=== PATIENT | female | born 1970 | race Hispanic/Latino ===

== ENCOUNTER → 2017-10-02 | Outpatient (CLI) | payer BC ==
[~2017-10-02] MED LIST: AMOXICILLIN500 M1 PO; BIRTH CONTROL PO; CHERATUSSIN AC118 ML PO; CIPRO500 MG PO; DEXILANT60 MG PO; DEXLANSOPRAZOLE; DOXYCYCLINE MO100 MG PO; FOLIC ACID1 MG PO; IPRAT-ALBUT 0.5-3 ML; KEFLEX500 MG PO; LEVAQUIN500 MG PO; MEDROL4 MG/DOSE-; METHOTREXATE2.5 MG PO; PLAQUENIL200 MG PO; PREDNISONE TAPER; PROVENTIL HFA6.7 GM; SERTALINE PO; SUCRALFATE1 GM PO; TYLENOL WITH C1 EACH PO; UTA PO; [UNRECOGNIZED DRUG - OTHER] PO
--- NOTE | 2017-10-03 12:21 | Diagnostic Imaging Report ---
Examination: MRI SPINE CERVICAL WO History: Right arm and hand numbness Comparison studies: None Technique: Sagittal T1, T2 and IR, axial T2 and axial gradient echo intravenous contrast: None Findings: Alignment: Normal lordosis. No scoliosis. Cervicomedullary junction: No abnormalities. Patent foramen magnum. Soft tissues: No T2 hyperintense inflammatory changes. Spinal cord: Normal in size and signal from the foramen magnum through T1. Vertebrae: No fractures, infection or neoplasm. Degenerative changes: C1-C2: No abnormalities. C2-C3: No abnormalities. C3-C4: Mild spinal canal stenosis due to a disc osteophyte complex. A thin foramina. No disc herniation. C4-C5: No abnormalities. C5-C6: Mild spinal canal stenosis due to a disc osteophyte complex. Mild right foraminal stenosis due to uncoarthrosis. Patent left foramen. No disc herniation C6-C7: Moderate right foraminal stenosis due to uncovertebral arthrosis. Patent bilateral canal in spite of a disc osteophyte complex. No disc herniations C7-T1: No abnormalities. IMPRESSION: 1. Mild spinal canal stenosis at C3-4 and at C5-6 due to disc osteophyte complexes. 2. Mild foraminal stenosis on the right at C5-6, moderate right at C6-7 due to uncoarthrosis. 3. No additional significant abnormalities. Signed by: Dr. Kris Mar M.D. on 10/03/2017 6:09 PM
== END ==
LOC: MRI 15:40
PROVIDERS: ATTEND Orthopaedic Surgery
DX: M53.82 Other specified dorsopathies, cervical region (principal)
CPT/HCPCS: 72141

== ENCOUNTER 2017-11-07 06:36 | Observation (INO) | payer BC ==
[2017-11-05 17:54] LABS: BASOPHILS # (AUTO) 0.1 (0.0-0.1); BASOPHILS % 1.4 % (0.0-1.0); EOSINOPHILS # (AUTO) 0.2 (0.0-0.4); EOSINOPHILS % 3.2 % (0.0-6.0); HEMATOCRIT 37.2 % (34.2-44.1); HEMOGLOBIN 12.3 g/dL (12.0-16.0); LYMPHOCYTES # (AUTO) 2.4 (1.0-3.2); LYMPHOCYTES % 36.2 % (18.0-39.1); MEAN CORPUSCULAR HEMOGLOBIN 29.4 pg (28-32); MEAN CORPUSCULAR HGB CONC 33.1 g/dL (31-35); MONOCYTES # (AUTO) 0.6 (0.2-0.8); MONOCYTES % 8.3 % (4.4-11.3); NEUTROPHILS # (AUTO) 3.4 (2.1-6.9); NEUTROPHILS % 50.7 % (38.7-80.0); PLATELET COUNT 293 x10e3/uL (140-360); RED BLOOD COUNT 4.18 x10e6/uL (3.6-5.1)
--- NOTE | 2017-11-05 17:58 | Diagnostic Imaging Report ---
PROCEDURE: Frontal and lateral views of the chest. COMPARISON: None. INDICATIONS: PRE-OP FINDINGS: Lines/tubes: None. Lungs: The lungs are well inflated and clear. There is no evidence of pneumonia or pulmonary edema. Pleura: There is no pleural effusion or pneumothorax. Heart and mediastinum: Mild enlargement of the cardiac silhouette. Pulmonary vasculature is normal. Bones and soft tissues: No acute bony abnormality. Cholecystectomy clips. IMPRESSION: 1. mild enlargement of the cardiac silhouette, without acute cardiopulmonary abnormality. Tom Pizano M.D. Dictated by: Tom Pizano M.D. on 11/05/2017 at 18:03 Electronically approved by: Tom Pizano M.D. on 11/05/2017 at 18:03
[2017-11-05 18:02] LABS: INR 1.05; PROTHROMBIN TIME 12.9 seconds (11.9-14.5)
[2017-11-05 18:03] LABS: PARTIAL THROMBOPLASTIN TIME 24.1 seconds (23.8-35.5)
[2017-11-05 18:10] LABS: ANION GAP 13.1 mmol/L (8-16); BLOOD UREA NITROGEN 10 mg/dL (7-26); BUN/CREATININE RATIO 15 (6-25); CALCIUM 9.9 mg/dL (8.4-10.2); CARBON DIOXIDE 29 mmol/L (22-29); CHLORIDE 104 mmol/L (98-107); CREATININE, SERUM 0.68 mg/dL (0.57-1.11); EST GLOMERULAR FILTRATION RATE > 60 ML/MIN (60-); GLUCOSE 94 mg/dL (74-118); POTASSIUM 3.1 mmol/L (3.5-5.1); SODIUM 143 mmol/L (136-145)
[~2017-11-07] VITALS: Ht 149.9 cm; Wt 52.6 kg
[~2017-11-07 06:36] MED LIST changes: +BACITRACIN 50,000 UNIT VIAL ONE; +BUPIVACAINE 0.5%/EPI 30 ML SDV INJ ONE; +GABAPENTIN100 MG; +GELATIN SPONGE SZ 100 ONE; +LEFLUNOMIDE10 MG; +PREDNISONE5 MG; +THROMBIN FOR SOLN 5,000 UNIT VIAL ONE; +ULTRAM50 MG PO; +ZOLOFT50 MG
[2017-11-07] MEDS ORDERED: LIDOCAINE HCL (LTA) 4 ML SOLN ONE (07:18)
[2017-11-07] MEDS ORDERED: CEFAZOLIN SOD 1 GM VIAL ONE (07:32)
[2017-11-07] MEDS ORDERED: OXYCODONE/ACETAMINOPHEN 5-325 1 EACH TABLET PO PRN (10:45)
[2017-11-07] MEDS ORDERED: PROMETHAZINE HCL (IM) 25 MG/ML VIAL IM PRN (10:45)
[2017-11-07] MEDS ORDERED: CEPACOL SORE THROAT LOZENGES PO PRN (10:45)
[2017-11-07] MEDS ORDERED: ACETAMINOPHEN 325 MG TAB PO PRN (10:45)
[2017-11-07] MEDS ORDERED: ZOLPIDEM TARTRATE 5 MG TAB PO PRN (10:45)
[2017-11-07] MEDS ORDERED: MAGNESIUM/ALUMINUM/SIMETHICONE 30 ML UDC PO PRN (10:45)
[2017-11-07] MEDS ORDERED: MORPHINE SULFATE 5 MG/ML VIAL IM PRN (10:45)
[2017-11-07 11:30] VITALS: BP 174/79
[2017-11-07 11:52] VITALS: BP 174/79
[2017-11-07] MEDS ORDERED: CARISOPRODOL 350 MG TAB ONE (12:19)
[2017-11-07] MEDS: CARISOPRODOL 350 MG TAB PO PRN (12:19)
[2017-11-07] MEDS ORDERED: CEFAZOLIN SOD 1 GM/D5W 50ML 50 ML IV SCH (14:00)
--- NOTE | 2017-11-07 14:18 | Operative Report ---
DATE OF PROCEDURE: November 07, 2017 PREOPERATIVE DIAGNOSIS: C5-6 and C6-7 disk herniation and spondylosis with radiculopathy, M50.120. POSTOPERATIVE DIAGNOSIS: C5-6 and C6-7 disk herniation and spondylosis with radiculopathy, M50.120. PROCEDURES 1. C5-6 anterior cervical diskectomy and microsurgical osteophyte resection and allograft fusion, 92607. 2. C6-7 anterior cervical diskectomy and microsurgical osteophyte resection and allograft fusion, 27942. 3. Preparation of tricortical iliac crest allograft, 66266. 4. C5-6 and C6-7 anterior cervical plating with Synthes CSLP plate, [id number]. ANESTHESIA: General. INDICATIONS: The patient is a 47-year-old woman who presents with neck pain and cervical radiculopathy and is found to have multilevel cervical disk herniations and spondylosis, worst at C5-6 and C6-7. She was taken to the operating room for 2-level anterior cervical decompression and fusion. PROCEDURE: After the induction of general anesthesia, the patient was placed on the operating table in supine position. The right side of the neck was prepped and draped in sterile fashion. The fluoroscopic C-arm was positioned in cross-table lateral orientation. A small transverse incision was created on the right side of the neck superimposed on the C6 vertebral body as determined by fluoroscopy. The platysma was divided in line with the incision. A subplatysmal dissection was carried out. An avascular plane of dissection was developed medial to sternocleidomastoid muscle and was followed medial to the carotid sheath to the anterior border the cervical spine. The deep cervical fascia was opened. The esophagus was retracted to the left. The attachments of longus colli muscles to the anterolateral aspects of vertebral bodies of C5, C6 and C7 were divided. The anterior longitudinal ligament was resected. [place] posts were inserted into C5 and C7. The [place] distractor was used to distract the disk space. The anterior annulus of the disk was incised with a number 11 blade and the contents of the disks were thoroughly evacuated with angled curets and pituitary rongeurs. The posterior osteophytes were drilled down with a 2-mm cutting bur on a high-speed drill until they were completely removed at both levels. The posterior annulus of the disk, herniated disk material, and the posterior longitudinal ligament were dissected layer by layer until the dura was fully exposed and decompressed. The medial aspects of the uncinate processes were resected bilaterally at both levels to further expose and decompress the origins of the corresponding nerve roots. After satisfactory decompression had been achieved, the endplates were prepared for fusion. Two pieces of tricortical iliac crest allograft were cut to size and shapes of the disk spaces and were inserted into the spaces under distraction and fluoroscopic guidance. The distraction was released and the distraction posts were removed. A Synthes CSLP variable type anterior cervical plate measuring 31 mm in height was selected and was affixed to the vertebral bodies of C5, C6 and C7 with 3 pairs of 14 x 4.35-mm screws. Each screw hole was drilled and tapped under lateral fluoroscopic guidance. Each screw was locked with the appropriate locking screws. An excellent construct was obtained. The wound was copiously irrigated with Bacitracin solution. Meticulous hemostasis was secured. The platysma was closed with 3-0 Vicryl sutures. The skin was closed with 4-0 Monocryl sutures in subcuticular fashion. Steri-Strips and dressing were applied. The patient was awakened, extubated, and taken to postanesthesia care unit in stable condition. No intraoperative complications were encountered. Estimated blood loss was 30 mL. Job#: [id number] FLOR
[2017-11-07] MEDS: CEFAZOLIN SOD 1 GM VIAL IV SCH ×2 (15:05→20:28)
[2017-11-07] MEDS: GABAPENTIN 100 MG CAP PO SCH ×2 (15:05→20:27)
[2017-11-07] MEDS: LACTATED RINGER'S 1,000 ML IV SCH ×2 (15:05→19:02)
[2017-11-07] MEDS: TRAMADOL HCL 50 MG TAB PO SCH ×2 (15:06→20:28)
[2017-11-07 15:22] VITALS: BP 143/82
[2017-11-07] MEDS: HYDROXYCHLOROQUINE SULFATE 200 MG TAB PO SCH (17:34)
[2017-11-07] MEDS ORDERED: ACETAMINOPHEN 1000 MG/100 ML IV ONE (17:43)
[2017-11-07] MEDS ORDERED: LIDOCAINE HCL 2% LOCAL INJ 5 ML SDV VIAL INJ ONE (17:43)
[2017-11-07] MEDS ORDERED: PROPOFOL IV EMULSION 10 MG/ML 20 ML VIAL ONE (17:43)
[2017-11-07] MEDS ORDERED: EPHEDRINE SULFATE INJ 50 MG/10 ML SYR ONE (17:43)
[2017-11-07] MEDS ORDERED: ONDANSETRON HCL INJ 2 MG/ML VIAL ONE (17:43)
[2017-11-07] MEDS ORDERED: NEOSTIGMINE 5 MG/5ML SYR ONE (17:43)
[2017-11-07] MEDS ORDERED: SEVOFLURANE INHAL SOLN 250 ML PEN BTL ONE (17:43)
[2017-11-07] MEDS ORDERED: GLYCOPYRROLATE INJ 1MG/ 5 ML SYR ONE (17:43)
[2017-11-07] MEDS ORDERED: ROCURONIUM BROMIDE 10 MG/ML 5ML VIAL ONE (17:43)
[2017-11-07] MEDS ORDERED: DEXAMETHASONE SOD PHOS INJ 4 MG/ML VIAL ONE (17:43)
[2017-11-07] MEDS ORDERED: FENTANYL CITRATE/PF 100MCG/2 ML INJ ONE (17:52)
[2017-11-07] MEDS ORDERED: MIDAZOLAM HCL 2 MG/2 ML VIAL ONE (17:52)
[2017-11-07 19:35] VITALS: BP 143/80
[2017-11-07] MEDS: ONDANSETRON HCL INJ 2 MG/ML VIAL IV PRN (19:59)
[2017-11-07] MEDS: HYDROMORPHONE 2MG/ML 2 MG/ML ML IV PRN (19:59)
[2017-11-07 20:14] VITALS: BP 143/80
[2017-11-07] MEDS ORDERED: SERTRALINE HCL 50 MG TAB PO SCH (21:00)
[2017-11-07] MEDS ORDERED: MORPHINE SULFATE INJ 4 MG/ML INJ IM PRN (21:30)
[2017-11-08 01:00] VITALS: BP 118/65
[2017-11-08] MEDS: LACTATED RINGER'S 1,000 ML IV SCH (03:22)
[2017-11-08] MEDS: ONDANSETRON HCL INJ 2 MG/ML VIAL IV PRN (04:12)
[2017-11-08] MEDS: HYDROMORPHONE 2MG/ML 2 MG/ML ML IV PRN (04:12)
[2017-11-08 05:15] VITALS: BP 106/58
[2017-11-08] MEDS: CEFAZOLIN SOD 1 GM VIAL IV SCH (05:37)
[2017-11-08] MEDS: TRAMADOL HCL 50 MG TAB PO SCH (08:23)
[2017-11-08] MEDS: HYDROXYCHLOROQUINE SULFATE 200 MG TAB PO SCH (08:23)
[2017-11-08] MEDS: GABAPENTIN 100 MG CAP PO SCH (08:23)
[2017-11-08 08:26] VITALS: BP 126/64
[2017-11-08] MEDS ORDERED: PANTOPRAZOLE SOD 40 MG TABEC PO SCH ×2 (09:00)
[2017-11-08] MEDS ORDERED: PREDNISONE 5 MG TAB PO SCH (09:00)
[2017-11-08] MEDS ORDERED: SERTRALINE HCL 50 MG TAB PO SCH (09:00)
[2017-11-08] MEDS: CARISOPRODOL 350 MG TAB PO PRN (11:07)
--- NOTE | 2017-11-08 11:13 | Diagnostic Imaging Report ---
PROCEDURE: X-RAY CERVICAL SPINE, TWO VIEWS COMPARISON:None. INDICATIONS:POST OP C-SPINE SURGERY 1 DAY FINDINGS: See conclusion. CONCLUSION: AP and lateral views of the cervical spine from the skull base to the top of C7. There has been anterior discectomy and fusion of the cervical spine from C5-C7 with intervertebral body disc spacers. The visualized vertebral bodies are well-aligned. There is mild pre-vertebral soft-tissue swelling consistent with recent surgery. Dictated by: Robbie Vargas M.D. on 11/08/2017 at 11:18 Electronically approved by: Robbie Vargas M.D. on 11/08/2017 at 11:18
[2017-11-08 11:45] VITALS: BP 120/63
== END 2017-11-08 13:20 | disposition home or self-care (01) ==
LOC: OR 06:36 → PACU V 10:46 → IMCU 11:40
PROVIDERS: ADMIT Neurological Surgery; ATTEND Neurological Surgery
DX: M50.122 Cervical disc disorder at C5-C6 level with radiculopathy (principal); R12 Heartburn; K44.9 Diaphragmatic hernia without obstruction or gangrene; M06.9 Rheumatoid arthritis, unspecified; K21.9 Gastro-esophageal reflux disease without esophagitis
CPT/HCPCS: 20931; 22551; 22552; 22845; 36415; 71046; 72040; 77003; 80048; 85025; 85610; 85730; 86850; 86900; 88304; 93005; 96360; 96361; C1713 ×4; C1768; G0378 ×2; J0690 ×2; J1100; J1170 ×2; J2001; J2250; J2270; J2405 ×2; J3490; J7120; J7512; S0164

== ENCOUNTER → 2017-12-05 | Outpatient (CLI) | payer BC ==
[~2017-12-05] MED LIST changes: -BACITRACIN 50,000 UNIT VIAL ONE; -BUPIVACAINE 0.5%/EPI 30 ML SDV INJ ONE; -GELATIN SPONGE SZ 100 ONE; -THROMBIN FOR SOLN 5,000 UNIT VIAL ONE
--- NOTE | 2017-12-17 17:33 | Diagnostic Imaging Report ---
PROCEDURE: C-SPINE AP AND LAT WITH FLEX AND EXT COMPARISON: Cervical spine radiographs 11/08/17. INDICATIONS: FUSION STATUS C-SPINE FINDINGS: C1 through C7 are visualized on the lateral view. Status post anterior fusion of C5 through C7 with metallic plate and transfixing screws which are intact and in adequate alignment. Flexion and extension views demonstrate no change in alignment. The hardware appears intact. Mild pre-vertebral soft tissue edema, likely post surgical is unchanged from prior radiograph. No evidence of fracture. CONCLUSION: Post surgical changes status post cervical fusion with unchanged alignment and intact hardware. Dictated by: CLARIBEL MAXWELL M.D. on 12/17/2017 at 13:43 Electronically approved by: CLARIBEL MAXWELL M.D. on 12/17/2017 at 13:43
== END ==
LOC: RAD 11:28
PROVIDERS: ATTEND Neurological Surgery
DX: M50.20 Other cervical disc displacement, unspecified cervical region (principal); Z98.1 Arthrodesis status
CPT/HCPCS: 72050

== ENCOUNTER → 2018-03-26 | Outpatient (CLI) | payer BC ==
--- NOTE | 2018-04-03 08:24 | Diagnostic Imaging Report ---
#[id number] - MGSCRBIL #BILATERAL DIGITAL SCREENING MAMMOGRAM WITH CAD: 03/26/2018 CLINICAL: Routine screening. Comparison is made to exams dated: 03/06/2017 mammogram and 09/29/2014 mammogram - [facility]. Current study contains 4 films. The tissue of both breasts is heterogeneously dense. This may lower the sensitivity of mammography. Current study was also evaluated with a Computer Aided Detection (CAD) system. There are benign calcifications in both breasts. There also are benign lymph nodes in both breasts. Additionally there are benign intramammary nodes in the left breast. There also is a biopsy clip in the right breast within a mass. No significant masses, calcifications, or other findings are seen in either breast. There has been no significant interval change. IMPRESSION: BENIGN There is no mammographic evidence of malignancy. A 1 year screening mammogram is recommended. The patient will be notified by letter of the results. El Gomez Jr., D.O. cw/:04/02/2018 14:35:48 Ship [employer]eller Finisher: Radha VALLE(R)(M), [facility] letter sent: Compared to Prior B9 Mammogram BI-RADS: 2 Benign
== END ==
LOC: MAMMO 13:18
PROVIDERS: ATTEND Internal Medicine
DX: Z12.31 Encounter for screening mammogram for malignant neoplasm of breast (principal)
CPT/HCPCS: 77067

== ENCOUNTER → 2018-05-28 | Outpatient (CLI) | payer BC ==
--- NOTE | 2018-05-29 07:36 | Diagnostic Imaging Report ---
Exam: Cervical spine with flexion and extension views History: Cervical disc herniation Comparison: None. Findings: As before, the patient is status post anterior fusion of C5, C6, and C7 with an intact plate and screw construct. No displaced fractures or subluxations. Flexion and extension radiographs show no evidence of inducible malalignment. Atlantoaxial interval is within normal limits. Prevertebral soft tissues are of normal thickness. Impression: Stable postsurgical changes of anterior fusion of C5, C6, and C7 without acute abnormality. Signed by: Dr. Fito Marley M.D. on 05/29/2018 7:33 AM
== END ==
LOC: RAD 16:17
PROVIDERS: ATTEND Neurological Surgery
DX: M50.20 Other cervical disc displacement, unspecified cervical region (principal); Z98.1 Arthrodesis status
CPT/HCPCS: 72050

== ENCOUNTER → 2019-10-07 | Emergency (ER) | payer BC, OTHER ==
[~2019-10-07] VITALS: Ht 149.9 cm; Wt 52.6 kg
--- NOTE | 2019-10-07 18:42 | Emergency Department Note ---
History of Present Illnes History of Present Illness Chief Complaint: COVID PUI History of Present Illness This is a 49 year old female COUGH AND EXPOSURE TO A PERSON WITH COVID. Onset (how long ago): day(s) (2) Location: CHEST Quality: DULL Radiation: Denies non-radiation, Denies back, Denies neck, Denies extremity, Denies abdomen, Denies periumbilical, Denies flank, Denies proximal, Denies distal, Denies other Severity: mild Onset quality: gradual Duration (how long): day(s) (2) Timing of current episode: intermittent Progression: waxing and waning Chronicity: new Context: Denies recent illness, Denies recent surgery, Denies recent immobilization, Denies recent travel, Denies trauma/injury, Denies new medications, Denies hx of DVT/PE, Denies non-compliance w/ medications, Denies other Relieving factors: none Exacerbating factors: none Treatments prior to arrival: none Past Medical/Family History Physician Review I have reviewed the patient's past medical and family history. Any updates have been documented here. Past Medical History Other Medical History: EXPOSED TO TB 2 YEARS AGO WITH POSITIVE TB TEST HX OF PNEUMONIA RA GERD DEPRESSION Past Surgical History: Hernia Repair Other Surgery: Hiatal hernia repair 2016 Other Last Tetanus: UNK Review of Systems Review of Systems Constitutional: Reports no symptoms EENTM: Reports no symptoms Cardiovascular: Reports no symptoms Respiratory: Reports as per HPI Gastrointestinal: Reports no symptoms Genitourinary: Reports no symptoms Musculoskeletal: Reports no symptoms Integumentary: Reports no symptoms Neurological: Reports no symptoms Psychological: Reports no symptoms Endocrine: Reports no symptoms Hematological/Lymphatic: Reports no symptoms Physical Exam Related Data Allergies: Coded Allergies: levofloxacin (Verified Allergy, Unknown, JOINT PAIN, 09/06/16) azithromycin (Verified Adverse Reaction, Intermediate, STOMACH UPSET, 08/24/16) Vital signs reviewed: Yes Physical Exam CONSTITUTIONAL Constitutional: Present well-developed, Present well-nourished HENT HENT: Present normocephalic, Present atraumatic, Present oropharynx clear/moist, Present nose normal HENT L/R: Present left ext ear normal, Present right ext ear normal EYES Eyes: Reports PERRL, Reports conjunctivae normal NECK Neck: Present ROM normal PULMONARY Pulmonary: Present effort normal, Present breath sounds normal CARDIOVASCULAR Cardiovascular: Present regular rhythm, Present heart sounds normal, Present capillary refill normal, Present normal rate GASTROINTESTINAL Abdominal: Present soft, Present nontender, Present bowel sounds normal GENITOURINARY Genitourinary: Present exam deferred SKIN Skin: Present warm, Present dry MUSCULOSKELETAL Musculoskeletal: Present ROM normal NEUROLOGICAL Neurological: Present alert, Present oriented x 3, Present no gross motor or sensory deficits PSYCHOLOGICAL Psychological: Present mood/affect normal, Present judgement normal Results Laboratory Lab results reviewed: Yes Assessment & Plan Medical Decision Making MDM COVID...BRONCHITIS Reassessment Reassessment time: 18:41 Assessment & Plan Final Impression: (1) Bronchitis, acute (2) Exposure to COVID-19 virus Depart Disposition: HOME, SELF-shelter Meds Reported Medications Gabapentin (GABAPENTIN) 100 Mg Capsule 11/06/17 Prednisone (PREDNISONE) 5 Mg Tablet 11/06/17 Tramadol Hcl (ULTRAM) 50 Mg Tablet, PO, TAB 11/06/17 Leflunomide (LEFLUNOMIDE) 10 Mg Tablet 11/06/17 Sertraline Hcl (ZOLOFT) 50 Mg Tablet, DAILY, #30 TAB 11/06/17 Hydroxychloroquine Sulfate (PLAQUENIL) 200 Mg Tab, 200 MG PO BID, #30 TAB 08/24/16 Dexlansoprazole (DEXILANT) 60 Mg Cap., 1 TAB-CAP PO DAILY THERAPEUTIC INTERCHANGE WITH PROTONIX PER [facility] 05/16/16 AISLINN RICHARDS MD Oct 07, 2019 18:42
== END | disposition home or self-care (01) ==
LOC: FSED 18:43
DX: R05 Cough (principal); J20.9 Acute bronchitis, unspecified; Z20.828 Contact with and (suspected) exposure to other viral communicable diseases; M06.9 Rheumatoid arthritis, unspecified; K21.9 Gastro-esophageal reflux disease without esophagitis
CPT/HCPCS: 87635; 99282

== ENCOUNTER 2019-12-04 08:52 | Emergency (ER) | payer BC, OTHER ==
[~2019-12-04] VITALS: Ht 149.9 cm; Wt 52.6 kg
[2019-12-04] MEDS ORDERED: SODIUM CHLORIDE 0.9% 1000ML 1,000 ML IV STA (09:05)
[2019-12-04] MEDS ORDERED: PANTOPRAZOLE 40 MG 10ML VIAL IV STA (09:05)
[2019-12-04] MEDS ORDERED: ONDANSETRON HCL INJ 2MG/ML 2ML 2 MG/ML VIAL IV STA (09:05)
[2019-12-04 09:19] LABS: BASOPHILS # (AUTO) 0.1 (0.0-0.1); BASOPHILS % 1.4 % (0.0-1.0); EOSINOPHILS # (AUTO) 0.2 (0.0-0.4); EOSINOPHILS % 3.3 % (0.0-6.0); HEMATOCRIT 35.8 % (34.2-44.1); HEMOGLOBIN 11.4 g/dL (12.0-16.0); LYMPHOCYTES # (AUTO) 1.4 (1.0-3.2); LYMPHOCYTES % 24.5 % (18.0-39.1); MEAN CORPUSCULAR HEMOGLOBIN 28.6 pg (28-32); MEAN CORPUSCULAR HGB CONC 31.8 g/dL (31-35); MEAN CORPUSCULAR VOLUME 89.9 fL (81-99); MONOCYTES # (AUTO) 0.6 (0.2-0.8); NEUTROPHILS # (AUTO) 3.3 (2.1-6.9); NEUTROPHILS % 60.4 % (38.7-80.0); PLATELET COUNT 237 x10e3/uL (140-360); RED BLOOD COUNT 3.98 x10e6/uL (3.6-5.1); RED CELL DISTRIBUTION WIDTH 13.7 % (11.7-14.4)
[2019-12-04 09:41] LABS: PARTIAL THROMBOPLASTIN TIME 29.2 seconds (23.8-35.5)
--- OUTSIDE RECORDS SUMMARY | 2019-12-04 09:41 | XMS REPORT | Continuity of Care Document ---
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 Reference Range Interpretation Comments Mean Corpuscular Hemoglobin Concent (test code = 786-4) 33.1 31-35 [facility] HospitalRed Cell Distribution [id number] 17:54:00* Test Item Value Reference Range Interpretation Comments Red Cell Distribution Width (test code = 24646-3) 14.0 11.7 -14.4 [facility] HospitalPlatelet Uhwpj3340-19-06 17:54:00* Test Item Value Reference Range Interpretation Comments Platelet Count (test code = 777-3) 293 140-360 [facility] HospitalNeutrophils (%) (Auto)2017-11-05 17:54:00 * Test Item Value Reference Range Interpretation Comments Neutrophils (%) (Auto) (test code = 76613-3) 50.7 38.7-80.0 [facility] HospitalLymphocytes (%) (Auto)2017-11-05 17:54:00 * Test Item Value Reference Range Interpretation Comments Lymphocytes (%) (Auto) (test code = 736-9) 36.2 18.0-39.1 [facility] HospitalMonocytes (%) (Auto)2017-11-05 17:54:00* Test Item Value Reference Range Interpretation Comments Monocytes (%) (Auto) (test code = 5905-5) 8.3 4.4-11.3 [facility] HospitalEosinophils (%) (Auto)2017-11-05 17:54:00 * Test Item Value Reference Range Interpretation Comments Eosinophils (%) (Auto) (test code = 713-8) 3.2 0.0-6.0 [facility] HospitalBasophils (%) (Auto)2017-11-05 17:54:00* Test Item Value Reference Range Interpretation Comments Basophils (%) (Auto) (test code = 706-2) 1.4 0.0-1.0 H [facility] HospitalIM GRANULOCYTES %2017-11-05 17:54:00* Test Item Value Reference Range Interpretation Comments IM GRANULOCYTES % (test code = IM GRANULOCYTES %) 0.2 0.0- 1.0 [facility] HospitalNeutrophils # (Auto)2017-11-05 17:54:00* Test Item Value Reference Range Interpretation Comments Neutrophils # (Auto) (test code = 751-8) 3.4 2.1-6.9 [facility] HospitalLymphocytes # (Auto)2017-11-05 17:54:00* Test Item Value Reference Range Interpretation Comments Lymphocytes # (Auto) (test code = 85082-1) 2.4 1.0-3.2 [facility] HospitalMonocytes # (Auto)2017-11-05 17:54:00* Test Item Value Reference Range Interpretation Comments Monocytes # (Auto) (test code = 742-7) 0.6 0.2-0.8 [facility] HospitalEosinophils # (Auto)2017-11-05 17:54:00* Test Item Value Reference Range Interpretation Comments Eosinophils # (Auto) (test code = 711-2) 0.2 0.0-0.4 [facility] HospitalBasophils # (Auto)2017-11-05 17:54:00* Test Item Value Reference Range Interpretation Comments Basophils # (Auto) (test code = 704-7) 0.1 0.0-0.1 [facility] HospitalAbsolute Immature Granulocyte (auto 2017-11-05 17:54:00* Test Item Value Reference Range Interpretation Comments Absolute Immature Granulocyte (auto (jonelle t code = Absolute Immature Granulocyte (auto) 0.01 0-0.1 [facility] HospitalMRI SPINE CERVICAL [id number] 12:17:00 [place] [id number] Patient Name: REANNA ARGUETA MR #: [id number] DO B: 1970 Age/Sex: 46/F Req #: [id number] Adm Physici an: Ordered by: ANGELICA GAMING R Report #: [id number] Location: MRI Room /Bed: Procedure: [id number] MRI/MRI SPINE CERVICAL WO Exam Date: Exam Time: REPORT STATUS: Signed Examination: MRI SPINE CERVICAL WO History: Right arm and hand numbness Comparison studies: None Technique: Sagittal T1, T2 and IR, axial T2 and axial gradient echo intravenous contrast: None Findings: Alignment: N ormal lordosis. No scoliosis. Cervicomedullary junction: No abnormalities. Pa tent foramen magnum. Soft tissues: No T2 hyperintense inflammatory changes. Spinal cord: Normal in size and signal from the foramen magnum through T1. Vertebrae: No fractures, infection or neoplasm. Degenerative changes: C1-C2: No abnormalities. C2-C3: No abnormalities. C3-C4: Mild s tristin canal stenosis due to a disc osteophyte complex. A thin foramina. No dis c herniation. C4-C5: No abnormalities. C5-C6: Mild spinal canal st enosis due to a disc osteophyte complex. Mild right foraminal stenosis due to uncoarthrosis. Patent left foramen. No disc herniation C6-C7: Moderate right foraminal stenosis due to uncovertebral arthrosis. Patent bilateral janis l in spite of a disc osteophyte complex. No disc herniations C7-T1: No abnormalities. IMPRESSION: 1. Mild spinal canal stenosis at C3-4 and at C5-6 due to disc osteophyte complexes. 2. Mild foraminal stenosis on the right at C5-6, moderate right at C6-7 due to uncoarthrosis. 3. No addition al significant abnormalities. Signed by: Dr. Kris Belle M.D. on 6:09 PM Dictated By: KRIS BELLE MD, MD Electronically S igned By: KRIS BELLE MD, MD on 10/03/171808 Transcribed By: MICKIE hale 10/03/171808 COPY TO: ANGELICA GAMING MAMMOGRAPHY DIGITAL SCR BILAT [place] [address] Patient Name: REANNA ARGUETA MR #: [id number] : 1970 Age/Sex: 46/F Req #: [id number] Adm Physician: Ordered by: BELLE AGARWAL MD Report #: [id number] Location: MAMMO Room/Bed: Procedure: [id number] MG/MAMMOGRAPHY DIGIT AL SCR BILAT Exam Date: 03/06/17 Exam Time: 1250 REPORT STATUS: Signed #[id number] - MGSCRBIL #BILATERAL DIGITAL SC REENING MAMMOGRAM WITH CAD: 03/06/2017 CLINICAL: Routine screening. Routine sc reening. Comparison is made to exams dated: 12/01/2015 mammogram, 09/30/19 15 mammogram and 08/11/2013 mammogram - [facility]. C urrent study contains 4 films. The tissue of both breasts is heterogeneously dense. This may lower the sensitivity of mammography. Current study was also evaluated with a Computer Aided Detection (CAD) system. There are benig n lymph nodes in both breasts. There also are benign intramammary nodes in the left breast. Additionally there is a biopsy clip in the right breast with in a fibroadenoma. No significant masses, calcifications, or other findings are seen in either breast. There has been no significant interval change. IMPRESSION: BENIGN There is no mammographic evidence of malignancy. A 1 ye ar screening mammogram is recommended. The patient will be notified by letter of the results. El Miguel Jr., D.O. cw/:03/21/2017 08:3 7:15 Spiritual Counselor: Radha Velasquez RT(R)(M), [facility] letter sent: Compared to Prior B9 Mammogram BI-RADS: 2 Benig n Dictated By: EL MIGUEL DO 6 Transcribed By: JOSE on 03/21/17836 COPY TO: BELLE BALLARD MD
[2019-12-04 09:49] LABS: ALANINE AMINOTRANSFERASE 22 IU/L (0-55); ALBUMIN 3.5 g/dL (3.5-5.0); ALBUMIN/GLOBULIN RATIO 0.9 (0.8-2.0); ALKALINE PHOSPHATASE 106 IU/L (40-150); ANION GAP 15.5 mmol/L (8-16); BLOOD UREA NITROGEN 8 mg/dL (7-26); BUN/CREATININE RATIO 12 (6-25); CALCIUM 9.3 mg/dL (8.4-10.2); CARBON DIOXIDE 22 mmol/L (22-29); CHLORIDE 107 mmol/L (98-107); CREATINE KINASE 47 IU/L (29-168); CREATININE, SERUM 0.66 mg/dL (0.57-1.11); EST GLOMERULAR FILTRATION RATE > 60 ML/MIN (60-); GLUCOSE 102 mg/dL (74-118); MAGNESIUM 1.9 MG/DL (1.3-2.1); POTASSIUM 3.5 mmol/L (3.5-5.1); SODIUM 141 mmol/L (136-145)
[2019-12-04 09:53] LABS: CLARITY,URINE CLEAR (CLEAR); COLOR,URINE YELLOW (YELLOW); LEUKOCYTE ESTERASE ,URINE SMALL (NEGATIVE)
[2019-12-04 09:54] LABS: BILIRUBIN,URINE NEGATIVE (NEGATIVE); KETONES,URINE NEGATIVE (NEGATIVE); NITRITE,URINE NEGATIVE (NEGATIVE); PROTEIN,URINE DIPSTICK NEGATIVE (NEGATIVE); URINE UROBILINOGEN 0.2 mg/dL (0.2 - 1)
[2019-12-04 10:08] LABS: BACTERIA,URINE MODERATE /HPF; EPITHELIAL CELLS,URINE FEW /LPF; RBC,URINE 0-5 /HPF (0-5); TRANSITIONAL EPI CELLS,URINE FEW
[2019-12-04 10:16] LABS: INR 0.95; PROTHROMBIN TIME 13.1 seconds (11.9-14.5)
--- NOTE | 2019-12-04 10:23 | Diagnostic Imaging Report ---
EXAMINATION: CHEST SINGLE (PORTABLE) INDICATION: Fever, cough COMPARISON: Chest radiograph 07/04/2012 FINDINGS: LINES/TUBES:None LUNGS:The lungs are well-inflated. No focal consolidation or pulmonary edema. PLEURA:No pleural effusion or pneumothorax. MEDIASTINUM:The cardiomediastinal silhouette appears normal in size and shape. BONES/SOFT TISSUES:No acute osseous injury. Cervical spine fusion hardware. ABDOMEN:No free air under the diaphragm. IMPRESSION: No focal pneumonia or pulmonary edema. Signed by: Cezar Brooke MD on 12/04/2019 10:20 AM
[2019-12-04] MEDS ORDERED: CEFTRIAXONE SOD 1 GM/NS 50 ML 50 ML IV ONE (10:45)
--- NOTE | 2019-12-04 10:53 | Emergency Department Note ---
History of Present Illnes History of Present Illness Chief Complaint: General Medicine Complaints History of Present Illness This is a 49 year old female YESTERDAY BEGAN HAVING DULL FRONTAL HEADACHE, DIARRHEA, NAUSEA, VOMITED X 2, UPPER QUADRANT DISCOMFORT, SUBJECTIVE FEVER, SWEATS, WEAKNESS. 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 Any updates have been documented here. Past Medical History Recent Fever: Yes (SUBJECTIVE) Clinical Suspicion of Infectio: No New/Unexplained Change in Ment: No Past Medical History: Depression, GERD Other Medical History: EXPOSED TO TB 2 YEARS AGO WITH POSITIVE TB TEST HX OF PNEUMONIA RA Past Surgical History: , Hernia Repair Other Surgery: Hiatal hernia repair 2016 CERVICAL FUSION Social History Smoking Cessation: Never Smoker Counseling Performed: No Alcohol Use: None Any Illegal Drug Use: No TB Exposure/Symptoms: No Physically hurt or threatened: No Family History Family history of heart diseas: No Other Last Tetanus: UNK Any Pre-Existing Lines (PICC,: No Review of Systems Review of Systems Constitutional: Reports as per HPI EENTM: Reports no symptoms Cardiovascular: Reports no symptoms Respiratory: Reports no symptoms Gastrointestinal: Reports as per HPI Genitourinary: Reports no symptoms Musculoskeletal: Reports no symptoms Integumentary: Reports no symptoms Neurological: Reports no symptoms Psychological: Reports no symptoms Endocrine: Reports no symptoms Hematological/Lymphatic: Reports no symptoms Physical Exam Related Data Allergies: Coded Allergies: levofloxacin (Verified Allergy, Unknown, JOINT PAIN, 12/04/19) azithromycin (Verified Adverse Reaction, Intermediate, STOMACH UPSET, 08/24/16) Triage Vital Signs Vital Signs Date Time Temp Pulse Resp B/P (MAP) Pulse Ox O2 Delivery O2 Flow Rate FiO2 12/04/19 09:00 98.0 93 18 129/81 98 Room Air Vital signs reviewed: Yes Physical Exam CONSTITUTIONAL Constitutional: Present well-developed, Present well-nourished HENT HENT: Present normocephalic, Present atraumatic, Present oropharynx clear/moist, Present nose normal HENT L/R: Present left ext ear normal, Present right ext ear normal EYES Eyes: Reports PERRL, Reports conjunctivae normal NECK Neck: Present ROM normal PULMONARY Pulmonary: Present effort normal, Present breath sounds normal CARDIOVASCULAR Cardiovascular: Present regular rhythm, Present heart sounds normal, Present capillary refill normal, Present normal rate GASTROINTESTINAL Abdominal: Present soft, Present nontender, Present bowel sounds normal GENITOURINARY Genitourinary: Present exam deferred SKIN Skin: Present warm, Present dry MUSCULOSKELETAL Musculoskeletal: Present ROM normal NEUROLOGICAL Neurological: Present alert, Present oriented x 3, Present no gross motor or sensory deficits PSYCHOLOGICAL Psychological: Present mood/affect normal, Present judgement normal Results Laboratory Result Diagram: 12/04/19 0911 12/04/19 0911 Laboratory Laboratory Tests Test 12/04/19 09:26 12/04/19 09:11 Urine Color Yellow (YELLOW) Urine Clarity Clear (CLEAR) Urine pH 6 (5 - 7) Urine Specific Elizabeth 1.020 (1.010-1.025) Urine Protein Negative (NEGATIVE) Urine Glucose (UA) Negative (NEGATIVE) Urine Ketones Negative (NEGATIVE) Urine Blood Trace (NEGATIVE) Urine Nitrite Negative (NEGATIVE) Urine Bilirubin Negative (NEGATIVE) Urine Urobilinogen 0.2 mg/dL (0.2 - 1) Urine Leukocyte Esterase Small (NEGATIVE) Urine RBC 0-5 /HPF (0-5) Urine WBC 6-10 /HPF (0-5) Urine Epithelial Cells Few /LPF (NONE) Urine Transitional Epithelial Cells Few (NONE) Urine Bacteria Moderate /HPF (NONE) White Blood Count 5.52 x10e3/uL (4.8-10.8) Red Blood Count 3.98 x10e6/uL (3.6-5.1) Hemoglobin 11.4 g/dL (12.0-16.0) Hematocrit 35.8 % (34.2-44.1) Mean Corpuscular Volume 89.9 fL (81-99) Mean Corpuscular Hemoglobin 28.6 pg (28-32) Mean Corpuscular Hemoglobin Concent 31.8 g/dL (31-35) Red Cell Distribution Width 13.7 % (11.7-14.4) Platelet Count 237 x10e3/uL (140-360) Neutrophils (%) (Auto) 60.4 % (38.7-80.0) Lymphocytes (%) (Auto) 24.5 % (18.0-39.1) Monocytes (%) (Auto) 10.0 % (4.4-11.3) Eosinophils (%) (Auto) 3.3 % (0.0-6.0) Basophils (%) (Auto) 1.4 % (0.0-1.0) Neutrophils # (Auto) 3.3 (2.1-6.9) Lymphocytes # (Auto) 1.4 (1.0-3.2) Monocytes # (Auto) 0.6 (0.2-0.8) Eosinophils # (Auto) 0.2 (0.0-0.4) Basophils # (Auto) 0.1 (0.0-0.1) Absolute Immature Granulocyte (auto 0.02 x10e3/uL (0-0.1) Prothrombin Time 13.1 seconds (11.9-14.5) Prothromb Time International Ratio 0.95 Activated Partial Thromboplast Time 29.2 seconds (23.8-35.5) Sodium Level 141 mmol/L (136-145) Potassium Level 3.5 mmol/L (3.5-5.1) Chloride Level 107 mmol/L (98-107) Carbon Dioxide Level 22 mmol/L (22-29) Anion Gap 15.5 mmol/L (8-16) Blood Urea Nitrogen 8 mg/dL (7-26) Creatinine 0.66 mg/dL (0.57-1.11) Estimat Glomerular Filtration Rate > 60 ML/MIN (60-) BUN/Creatinine Ratio 12 (6-25) Glucose Level 102 mg/dL (74-118) Calcium Level 9.3 mg/dL (8.4-10.2) Magnesium Level 1.9 MG/DL (1.3-2.1) Total Bilirubin 0.4 mg/dL (0.2-1.2) Aspartate Amino Transf (AST/SGOT) 21 IU/L (5-34) Alanine Aminotransferase (ALT/SGPT) 22 IU/L (0-55) Alkaline Phosphatase 106 IU/L (40-150) Creatine Kinase 47 IU/L (29-168) Creatine Kinase MB 0.40 ng/mL (0-5.0) Troponin I 0.001 ng/mL (0-0.300) Total Protein 7.6 g/dL (6.5-8.1) Albumin 3.5 g/dL (3.5-5.0) Globulin 4.1 g/dL (2.3-3.5) Albumin/Globulin Ratio 0.9 (0.8-2.0) Human Chorionic Gonadotropin, Qual Negative (NEGATIVE) Lab results reviewed: Yes Imaging Imaging results reviewed: Yes Procedures 12 Lead ECG Interpretation ECG Interpretation : ECG: ECG 1 Patient Coordinator Front Desk: Interpreted by ED physician Date: Dec 04, 2019 Time: 09:27 Rhythm: sinus rhythm Rate: normal (75) QRS axis: normal ST segments normal: Yes T wave inversion: III, V1 T waves flattening: aVF, V3, V4, V5, V6 Clinical Impression: abnormal ECG Assessment & Plan Medical Decision Making [facility] pt with h/o RA on immunosuppresive meds with achiness, nausea/V/D since yesterday and crampy abd pain, no tenderness on exam - cbc, chem, ecg, cardiacs, ua/cx, cxr, covid swab - r/o leukocytosis, uti, pneumonia, stemi/nstemi, covid19 Reassessment Reassessment improved with IV fluids, zofran. DC with Omnicef for UTI, Bentyle Zofran. F/U PCP, self-quarantine, proning Assessment & Plan Final Impression: (1) UTI (urinary tract infection) Depart Disposition: HOME, SELF-CARE Last Vital Signs Date Time Temp Pulse Resp B/P (MAP) Pulse Ox O2 Delivery O2 Flow Rate FiO2 12/04/19 09:45 98.0 65 19 129/81 98 Room Air Home Meds Reported Medications Gabapentin (GABAPENTIN) 100 Mg Capsule 11/06/17 Prednisone (PREDNISONE) 5 Mg Tablet 11/06/17 Tramadol Hcl (ULTRAM) 50 Mg Tablet, PO, TAB 11/06/17 Leflunomide (LEFLUNOMIDE) 10 Mg Tablet 11/06/17 Sertraline Hcl (ZOLOFT) 50 Mg Tablet, DAILY, #30 TAB 11/06/17 Hydroxychloroquine Sulfate (PLAQUENIL) 200 Mg Tab, 200 MG PO BID, #30 TAB 08/24/16 Dexlansoprazole (DEXILANT) 60 Mg Cap.mp, 1 TAB-CAP PO DAILY THERAPEUTIC INTERCHANGE WITH PROTONIX PER [facility] 05/16/16 Medications in the ED Pantoprazole Sodium 40 mg ONCE STAT IV Last administered on 12/04/19at 10:04; Admin Dose 40 MG; Start 12/04/19 at 09:05; Stop 12/04/19 at 09:48; Status DC Ondansetron HCl 8 mg ONCE STAT IV Last administered on 12/04/19at 10:04; Admin Dose 8 MG; Start 12/04/19 at 09:05; Stop 12/04/19 at 09:48; Status DC Sodium Chloride 1,000 ml @ 0 mls/hr Q0M STAT IV Last administered on 12/04/19at 10:04; Admin Dose 999 MLS/HR; Start 12/04/19 at 09:05; Stop 12/04/19 at 09:48; Status DC Ceftriaxone Sodium 50 ml @ 100 mls/hr ONCE ONCE IV ; Start 12/04/19 at 10:45; Stop 12/04/19 at 11:14 SHELBY MENDOZA MD Dec 04, 2019 10:53
== END 2019-12-04 11:30 | disposition home or self-care (01) ==
LOC: ER 09:05
DX: R10.10 Upper abdominal pain, unspecified (principal); N39.0 Urinary tract infection, site not specified; R11.2 Nausea with vomiting, unspecified; R19.7 Diarrhea, unspecified; R51 Headache; F32.9 Major depressive disorder, single episode, unspecified; K21.9 Gastro-esophageal reflux disease without esophagitis; M06.9 Rheumatoid arthritis, unspecified; Z11.59 Encounter for screening for other viral diseases
CPT/HCPCS: 36415; 71045; 80053; 81001; 82550; 82553; 83735; 84484; 84702; 85025; 85610; 85730; 87086; 93005; 99284; C9113; J0696; J2405; J7030; U0002

== ENCOUNTER 2020-01-05 19:42 | Emergency (ER) | payer BC ==
[~2020-01-05] VITALS: Ht 149.9 cm; Wt 61.2 kg
[2020-01-05] MEDS ORDERED: KETOROLAC TROMETHAMINE 30 MG/ML VIAL IV STA (20:29)
[2020-01-05] MEDS ORDERED: SODIUM CHLORIDE 0.9% 1000ML 1,000 ML IV STA (20:29)
[2020-01-05] MEDS ORDERED: CEFTRIAXONE SOD 1 GM VIAL IV STA (20:29)
[2020-01-05] MEDS ORDERED: ALBUTEROL/IPRATROPIUM 3 ML NEB NEB ONE (20:30)
[2020-01-05] MEDS ORDERED: SODIUM CHLORIDE FLUSH 10 ML SYR INJ PRN (20:30)
[2020-01-05] MEDS ORDERED: METHYLPREDNISOLONE SOD SUCC 125 MG/2ML VIAL IV ONE (20:30)
--- NOTE | 2020-01-05 20:32 | Diagnostic Imaging Report ---
EXAMINATION: CXR 2 VIEW - HOPD INDICATION: cough/sob/wheezing COMPARISON: None FINDINGS: TUBES and LINES: None. LUNGS: Normal lung volumes. There is mild prominence of interstitial lung markings. No consolidations. PLEURA: No pleural effusion or pneumothorax. HEART AND MEDIASTINUM: The cardiomediastinal silhouette is unremarkable. BONES AND SOFT TISSUES: No acute osseous lesion. Cervical spine hardware visualized in AP view. Soft tissues are unremarkable. UPPER ABDOMEN: No free air under the diaphragm. IMPRESSION: Mild prominence of the interstitial lung markings which can be seen with pulmonary vascular congestion and/or airway inflammation such as bronchitis. No focal consolidation, pleural effusion or pneumothorax. Signed by: Opal Parker MD on 01/05/2020 8:28 PM
[2020-01-05] MEDS ORDERED: METHYLPREDNISOLONE SOD SUCC 125 MG/2ML VIAL ONE (20:52)
[2020-01-05] MEDS ORDERED: KETOROLAC TROMETHAMINE 30 MG/ML VIAL ONE (20:52)
[2020-01-05] MEDS ORDERED: ALBUTEROL SULF 0.083% NEB SOLN 3 ML NEB ONE (20:53)
[2020-01-05] MEDS ORDERED: CEFTRIAXONE SOD 1 GM/NS 50 ML 50 ML IV ONE (20:53)
[2020-01-05] MEDS ORDERED: SODIUM CHLORIDE 0.9% 1000ML 1,000 ML ONE (20:53)
[2020-01-05] MEDS ORDERED: ALBUTEROL2.5 MG/3 M NEB (21:28)
[2020-01-05] MEDS ORDERED: ONDANSETRON ODT8 MG SL (21:28)
[2020-01-05] MEDS ORDERED: BROMFED DM COU118 ML PO (21:28)
[2020-01-05] MEDS ORDERED: PROAIR HFA INH8.5 GM PO (21:28)
[2020-01-05] MEDS ORDERED: CEFDINIR300 MG PO (21:28)
[2020-01-05] MEDS ORDERED: PREDNISONE20 MG PO (21:28)
--- NOTE | 2020-01-05 21:29 | Emergency Department Note ---
History of Present Illnes History of Present Illness Chief Complaint: sob/wheezing History of Present Illness This is a 49 year old female. was doing well until [address], runny nose, congestion then cough, wheezing, sob. then posttusive emesis then cw pain. 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 Onset (how long ago): hour(s) (3) Location: see above Quality: see above Radiation: Reports non-radiation Severity: moderate Onset quality: gradual Duration (how long): hour(s) (3) Timing of current episode: intermittent Progression: worsening Chronicity: recurrent (rad/bronchitis) Context: Denies recent illness, Denies recent surgery, Denies recent immobiliz ation, Denies recent travel, Denies trauma/injury, Denies new medications, Denies hx of DVT/PE Relieving factors: rest Exacerbating factors: movement Associated symptoms: Reports chest pain, Reports cough, Reports shortness of breath Treatments prior to arrival: none Past Medical/Family History Physician Review I have reviewed the patient's past medical and family history. Any updates have been documented here. Past Medical History Recent Fever: No Clinical Suspicion of Infectio: No New/Unexplained Change in Ment: No Past Medical History: Depression, GERD Other Medical History: EXPOSED TO TB 2 YEARS AGO WITH POSITIVE TB TEST HX OF PNEUMONIA RA Past Surgical History: , Hernia Repair Other Surgery: Hiatal hernia repair 2016 CERVICAL FUSION Social History Smoking Cessation: Never Smoker Counseling Performed: No Alcohol Use: None Any Illegal Drug Use: No Other Last Tetanus: UNK Any Pre-Existing Lines (PICC,: No Review of Systems Review of Systems Constitutional: Reports no symptoms EENTM: Reports no symptoms Cardiovascular: Reports as per HPI Respiratory: Reports as per HPI Gastrointestinal: Reports no symptoms Genitourinary: Reports no symptoms Musculoskeletal: Reports no symptoms Integumentary: Reports no symptoms Neurological: Reports no symptoms Psychological: Reports no symptoms Endocrine: Reports no symptoms Hematological/Lymphatic: Reports no symptoms Review of other systems: All other systems negative Physical Exam Related Data Allergies: Coded Allergies: levofloxacin (Verified Allergy, Unknown, JOINT PAIN, 12/04/19) azithromycin (Verified Adverse Reaction, Intermediate, STOMACH UPSET, 08/24/16) Triage Vital Signs Vital Signs Date Time Temp Pulse Resp B/P (MAP) Pulse Ox O2 Delivery O2 Flow Rate FiO2 01/05/20 19:45 98.9 100 18 170/91 97 Room Air Vital signs reviewed: Yes Physical Exam CONSTITUTIONAL Constitutional: Present well-developed, Present well-nourished HENT HENT: Present normocephalic, Present atraumatic, Present mucosae dry, Present nose normal, Present erythema HENT L/R: Present left ext ear normal, Present right ext ear normal EYES Eyes: Reports PERRL, Reports conjunctivae normal NECK Neck: Present ROM normal, Present supple PULMONARY Pulmonary: Present effort normal, Present chest tenderness (sternal), Present other (bilateral wheezes) CARDIOVASCULAR Cardiovascular: Present regular rhythm, Present heart sounds normal, Present capillary refill normal, Present normal rate GASTROINTESTINAL Abdominal: Present soft, Present nontender, Present bowel sounds normal GENITOURINARY Genitourinary: Present exam deferred SKIN Skin: Present warm, Present dry MUSCULOSKELETAL Musculoskeletal: Present ROM normal NEUROLOGICAL Neurological: Present alert, Present oriented x 3, Present no gross motor or sensory deficits PSYCHOLOGICAL Psychological: Present mood/affect normal, Present judgement normal Results Laboratory Lab results reviewed: Yes (cbc/bmp normal) Imaging Imaging results reviewed: Yes Impressions [place] [address] Patient Name: REANNA ARGUETA MR #: [id number] 7 : 1970 Age/Sex: 49/F Req #: [id number] Adm Physician: Ordered by: ALISHA MULLEN Report #: [id number] Location: [facility] Room/Bed: Procedure: [id number] HOPD/CXR 2 VIEW - HOPD Exam Date: 01/05/20 Exam Time: 2014 REPORT STATUS: Signed EXAMINATION: CXR 2 VIEW - HOPD INDICATION: cough/sob/wheezing COMPARISON: None FINDINGS: TUBES and LINES: None. LUNGS: Normal lung volumes. There is mild prominence of interstitial lung markings. No consolidations. PLEURA: No pleural effusion or pneumothorax. HEART AND MEDIASTINUM: The cardiomediastinal silhouette is unremarkable. BONES AND SOFT TISSUES: No acute osseous lesion. Cervical spine hardware visualized in AP view. Soft tissues are unremarkable. UPPER ABDOMEN: No free air under the diaphragm. IMPRESSION: Mild prominence of the interstitial lung markings which can be seen with pulmonary vascular congestion and/or airway inflammation such as bronchitis. No focal consolidation, pleural effusion or pneumothorax. Signed by: Sofiya Cat MD on 01/05/2020 8:28 PM Dictated By: SOFIYA CAT MD 27 Transcribed By: MICKIE on 01/05/202027 COPY TO: ALISHA MULLEN~ Assessment & Plan Medical Decision Making MDM see below Reassessment Reassessment symptoms almost resolved s/p meds/ivfs Assessment & Plan Final Impression: (1) Reactive airway disease (2) Acute bronchitis (3) Dehydration (4) Chest wall muscle strain (5) Acute pharyngitis Depart Disposition: HOME, SELF-CARE Last Vital Signs Date Time Temp Pulse Resp B/P (MAP) Pulse Ox O2 Delivery O2 Flow Rate FiO2 01/05/20 19:45 98.9 100 18 170/91 97 Room Air Home Meds Active Scripts D-Methorphan Hb/P-Epd Hcl/Bpm (BROMFED DM COUGH SYRUP) 118 Ml Syrup, 10 ML PO Q4HR PRN for COUGH, #240 ML PRN COUGH(USE ALBUTEROL FIRST), CONGESTION, ALLERGY SYMPTOMS Prov:ALISHA MULLEN 01/05/20 Ondansetron (ONDANSETRON ODT) 8 Mg Tab.rapdis, 4 MG SL Q4HR PRN for NAUSEA AND VOMITING, #20 TAB 1 Refill Prov:ALISHA MULLEN 01/05/20 Albuterol Sulfate (ALBUTEROL SULFATE) 2.5 Mg/3 Ml Vial.neb, 5 MG NEB Q4HR PRN for WHEEZING, #120 UNITS PRN COUGH, WHEEZING, SHORTNESS OF BREATH Prov:ALISHA MULLEN 01/05/20 Cefdinir (OMNICEF) 300 Mg Capsule, 300 MG PO Q12H, #20 TAB Prov:ALISHA MULLEN 01/05/20 Prednisone (PREDNISONE) 20 Mg Tab, 60 MG PO DAILY, #18 TAB take all 3 20 mg pills at once Prov:ALISHA MULLEN 01/05/20 Albuterol Sulf* (PROAIR HFA INHALER*) 8.5 Gm Inh, 2 INH PO Q4HR PRN for WHEEZING, #120 UNITS Prov:ALISHA MULLEN 01/05/20 Reported Medications Gabapentin (GABAPENTIN) 100 Mg Capsule 11/06/17 Prednisone (PREDNISONE) 5 Mg Tablet 11/06/17 Tramadol Hcl (ULTRAM) 50 Mg Tablet, PO, TAB 11/06/17 Leflunomide (LEFLUNOMIDE) 10 Mg Tablet 11/06/17 Sertraline Hcl (ZOLOFT) 50 Mg Tablet, DAILY, #30 TAB 11/06/17 Hydroxychloroquine Sulfate (PLAQUENIL) 200 Mg Tab, 200 MG PO BID, #30 TAB 08/24/16 Dexlansoprazole (DEXILANT) 60 Mg Cap., 1 TAB-CAP PO DAILY THERAPEUTIC INTERCHANGE WITH PROTONIX PER [facility] 05/16/16 Medications in the ED Sodium Chloride 10 ml PRN PRN INJ IV SITE FLUSH; Start 01/05/20 at 20:30; Stop 02/04/20 at 20:29 Albuterol/ Ipratropium 6 ml ONCE ONCE NEB ; Start 01/05/20 at 20:30; Stop 01/05/20 at 20:38; Status DC Ketorolac Tromethamine 30 mg ONCE STAT IV ; Start 01/05/20 at 20:29; Stop 01/05/20 at 20:43; Status DC Methylprednisolone Sodium Succinate 125 mg ONCE ONCE IV ; Start 01/05/20 at 20:30; Stop 01/05/20 at 20:43; Status DC Ceftriaxone Sodium 1 gm ONCE STAT IV ; Start 01/05/20 at 20:29; Stop 01/05/20 at 20:43; Status DC Sodium Chloride 1,000 ml @ 1,000 mls/hr Q1H STAT IV ; Start 01/05/20 at 20:29; Stop 01/05/20 at 21:28 Methylprednisolone Sodium Succinate 125 mg STK-MED ONCE .ROUTE ; Start 01/05/20 at 20:52; Stop 01/05/20 at 20:48; Status DC Ketorolac Tromethamine 30 mg STK-MED ONCE .ROUTE ; Start 01/05/20 at 20:52; Stop 01/05/20 at 20:48; Status DC Albuterol Sulfate 6 ml STK-MED ONCE .ROUTE ; Start 01/05/20 at 20:53; Stop 01/05/20 at 20:48; Status DC Ceftriaxone Sodium 50 ml @ ud STK-MED ONCE IV ; Start 01/05/20 at 20:53; Stop 01/05/20 at 20:48; Status DC Sodium Chloride 1,000 ml @ ud STK-MED ONCE .ROUTE ; Start 01/05/20 at 20:53; Stop 01/05/20 at 20:48; Status DC ALISHA MULLEN Jan 05, 2020 21:29
[2020-01-05 22:24] VITALS: BP 110/63
== END 2020-01-05 22:26 | disposition home or self-care (01) ==
LOC: FSED 19:55
DX: J20.9 Acute bronchitis, unspecified (principal); J45.909 Unspecified asthma, uncomplicated; R05 Cough; J02.9 Acute pharyngitis, unspecified; S29.011A Strain of muscle and tendon of front wall of thorax, initial encounter; E86.0 Dehydration; K21.9 Gastro-esophageal reflux disease without esophagitis; F32.9 Major depressive disorder, single episode, unspecified
CPT/HCPCS: 71046; 80053; 85025; 99283; J0696; J1885; J2930; J7030

== ENCOUNTER → 2020-01-13 | Outpatient (RCR) | payer BC ==
[~2020-01-13] MED LIST changes: +ALBUTEROL2.5 MG/3 M NEB; +BROMFED DM COU118 ML PO; +CEFDINIR300 MG PO; +ONDANSETRON ODT8 MG SL; +PREDNISONE20 MG PO; +PROAIR HFA INH8.5 GM PO
== END ==
LOC: PT 12-29 16:34
PROVIDERS: ATTEND Neurological Surgery
DX: M48.061 Spinal stenosis, lumbar region without neurogenic claudication (principal); M62.81 Muscle weakness (generalized); M54.5 Low back pain; M53.86 Other specified dorsopathies, lumbar region

== ENCOUNTER 2020-01-27 16:00 | Outpatient (RCR) | payer BC | END 2020-02-13 | LOC: PT 16:00 | PROVIDERS: ATTEND Neurological Surgery | DX: M48.061 Spinal stenosis, lumbar region without neurogenic claudication (principal); M62.81 Muscle weakness (generalized); M54.5 Low back pain; M53.86 Other specified dorsopathies, lumbar region | CPT/HCPCS: 97139 ==

== ENCOUNTER 2020-04-14 11:04 | Observation (INO) | payer BC, OTHER ==
[~2020-04-14] VITALS: Ht 142.2 cm; Wt 61.2 kg
[2020-04-14] MEDS ORDERED: KETOROLAC TROMETHAMINE 30 MG/ML VIAL IV STA (11:42)
[2020-04-14] MEDS ORDERED: ASPIRIN 81 MG CHEW TAB PO ONE (11:45)
[2020-04-14] MEDS ORDERED: SODIUM CHLORIDE FLUSH 10 ML SYR INJ PRN (11:45)
[2020-04-14] MEDS ORDERED: ORPHENADRINE CITRATE 30 MG/ML VIAL INJ ONE (11:45)
[2020-04-14] MEDS ORDERED: METHYLPREDNISOLONE SOD SUCC 125 MG/2ML VIAL IV ONE (11:45)
[2020-04-14] MEDS ORDERED: LORAZEPAM INJ 2 MG/ML VIAL IV ONE (12:45)
[2020-04-14] MEDS ORDERED: METHYLPREDNISOLONE SOD SUCC 125 MG/2ML VIAL ONE (12:49)
[2020-04-14] MEDS ORDERED: ASPIRIN 81 MG CHEW TAB ONE (12:49)
[2020-04-14] MEDS ORDERED: KETOROLAC TROMETHAMINE 30 MG/ML VIAL ONE (12:49)
[2020-04-14] MEDS ORDERED: ENOXAPARIN SOD INJ 60 MG/0.6 ML SYR SC STA (14:27)
[2020-04-14] MEDS ORDERED: NITROGLYCERIN 2% OINT 1 GM PKT TOP ONE (14:30)
[2020-04-14] MEDS ORDERED: ENOXAPARIN INJ 80 MG/0.8 ML SYR SC ONE (14:45)
[2020-04-14] MEDS: FAMOTIDINE 20 MG TAB PO SCH ×2 (16:22→22:00)
[2020-04-14] MEDS ORDERED: ENOXAPARIN SODIUM INJ 100 MG/ML SYR SC ONE (16:26)
[2020-04-14] MEDS ORDERED: FAMOTIDINE 20 MG TAB ONE (16:26)
[2020-04-14 18:01] VITALS: BP 136/81
[2020-04-14 18:16] VITALS: BP 136/81
[2020-04-14 18:20] VITALS: BP 136/81
[2020-04-14] MEDS: NITROGLYCERIN 2% OINT 1 GM PKT TOP SCH (19:44)
[2020-04-14 20:00] VITALS: BP 129/78
[2020-04-14] MEDS ORDERED: ACETAMINOPHEN 325 MG TAB ONE (20:16)
[2020-04-14] MEDS: ACETAMINOPHEN 325 MG TAB PO PRN (20:23)
[2020-04-14 21:00] VITALS: BP 129/78
[2020-04-14] MEDS: MORPHINE SULFATE INJ 4 MG/ML INJ 1ML IV PRN (22:38)
[2020-04-14] MEDS: ONDANSETRON HCL INJ 2MG/ML 2ML 2 MG/ML VIAL IV PRN (22:38)
[2020-04-15] VITALS: BP 136/85
[2020-04-15 00:19] LABS: CREATINE KINASE MB 0.5 ng/mL (0-5.0)
[2020-04-15 04:00] VITALS: BP 120/74
[2020-04-15] MEDS: ACETAMINOPHEN 325 MG TAB PO PRN (05:49)
[2020-04-15] MEDS: NITROGLYCERIN 2% OINT 1 GM PKT TOP SCH ×3 (05:49→12:00)
[2020-04-15] MEDS ORDERED: ZOLPIDEM TARTRATE 5 MG TAB PO PRN (08:00)
[2020-04-15] MEDS ORDERED: DOCUSATE SODIUM 100 MG CAP PO PRN (08:00)
[2020-04-15 08:51] VITALS: BP 127/86
[2020-04-15] MEDS ORDERED: SERTRALINE HCL 50 MG TAB PO SCH (09:00)
[2020-04-15] MEDS ORDERED: HYDROXYCHLOROQUINE SULFATE 200 MG TAB PO SCH ×2 (09:00→17:00)
[2020-04-15] MEDS ORDERED: PREDNISONE 5 MG TAB PO SCH (09:00)
[2020-04-15] MEDS ORDERED: PANTOPRAZOLE SOD 40 MG TABEC PO SCH (09:00)
[2020-04-15] MEDS ORDERED: ASPIRIN 325 MG TAB EC PO SCH (09:00)
[2020-04-15 09:11] LABS: BASOPHILS % 0.4 % (0.0-1.0); HEMATOCRIT 33.5 % (34.2-44.1); HEMOGLOBIN 10.8 g/dL (12.0-16.0); LYMPHOCYTES # (AUTO) 1.3 (1.0-3.2); LYMPHOCYTES % 12.8 % (18.0-39.1); MEAN CORPUSCULAR HEMOGLOBIN 28.8 pg (28-32); MEAN CORPUSCULAR HGB CONC 32.2 g/dL (31-35); MEAN CORPUSCULAR VOLUME 89.3 fL (81-99); MONOCYTES # (AUTO) 0.8 (0.2-0.8); MONOCYTES % 8.1 % (4.4-11.3); NEUTROPHILS # (AUTO) 7.9 (2.1-6.9); NEUTROPHILS % 78.4 % (38.7-80.0); PLATELET COUNT 241 x10e3/uL (140-360); RED BLOOD COUNT 3.75 x10e6/uL (3.6-5.1); RED CELL DISTRIBUTION WIDTH 13.3 % (11.7-14.4)
[2020-04-15 09:33] LABS: ANION GAP 11.5 mmol/L (8-16); BLOOD UREA NITROGEN 14 mg/dL (7-26); BUN/CREATININE RATIO 24 (6-25); CALCIUM 8.5 mg/dL (8.4-10.2); CARBON DIOXIDE 25 mmol/L (22-29); CHLORIDE 107 mmol/L (98-107); CREATININE, SERUM 0.58 mg/dL (0.57-1.11); EST GLOMERULAR FILTRATION RATE > 60 ML/MIN (60-); GLUCOSE 120 mg/dL (74-118); POTASSIUM 3.5 mmol/L (3.5-5.1); SODIUM 140 mmol/L (136-145)
[2020-04-15] MEDS: MORPHINE SULFATE INJ 4 MG/ML INJ 1ML IV PRN (09:37)
[2020-04-15] MEDS: ONDANSETRON HCL INJ 2MG/ML 2ML 2 MG/ML VIAL IV PRN (09:38)
[2020-04-15 09:52] LABS: ALBUMIN 3.2 g/dL (3.5-5.0); BILIRUBIN,DIRECT 0.2 mg/dL (0.0-0.5); CHOL/HDL RATIO 2.6 (3.0-3.6); MAGNESIUM 1.8 MG/DL (1.3-2.1)
[2020-04-15 10:30] LABS: CREATINE KINASE MB 0.5 ng/mL (0-5.0)
[2020-04-15 12:25] VITALS: BP 145/80
[2020-04-15] MEDS ORDERED: GABAPENTIN 100 MG CAP PO SCH (14:00)
[2020-04-15] MEDS ORDERED: ENOXAPARIN SOD INJ 40 MG/0.4 ML SYR SC SCH (17:00)
[2020-04-15 17:03] VITALS: BP 123/71
[2020-04-16] MEDS ORDERED: LEFLUNOMIDE PO SCH (09:00)
== END 2020-04-15 14:35 | disposition home or self-care (01) ==
LOC: FSED 11:25 → ERHOLD 14:32 → INTOOBSV 14:32 → MED/SURG 17:50
PROVIDERS: ADMIT Internal Medicine; ATTEND Internal Medicine
DX: R07.89 Other chest pain (principal); E66.9 Obesity, unspecified; Z68.30 Body mass index [BMI] 30.0-30.9, adult; M06.9 Rheumatoid arthritis, unspecified; Z20.828 Contact with and (suspected) exposure to other viral communicable diseases; R94.31 Abnormal electrocardiogram [ECG] [EKG]
CPT/HCPCS: 36415 ×2; 71045; 80048; 80053; 80061; 80076; 81003; 82550 ×2; 82553 ×2; 83036; 83735; 84484 ×2; 85025 ×2; 85379; 86140; 93005; 93306; 99284; G0378 ×2; J1650; J1885; J2270 ×2; J2405 ×2; J2930; J7512; S0164; U0002; J2360

== ENCOUNTER 2020-04-17 11:24 | Emergency (ER) | payer OTHER ==
[~2020-04-17] VITALS: Ht 172.7 cm; Wt 60.3 kg
[2020-04-17] MEDS ORDERED: DIPHENHYDRAMINE HCL INJ 50 MG/ML VIAL IV ONE (12:15)
[2020-04-17] MEDS ORDERED: KETOROLAC TROMETHAMINE 60 MG/2 ML VIAL IM ONE (12:15)
[2020-04-17] MEDS ORDERED: METOCLOPRAMIDE HCL 10 MG/2ML VIAL IV ONE (12:15)
[2020-04-17] MEDS ORDERED: DIPHENHYDRAMINE HCL INJ 50 MG/ML VIAL ONE (12:51)
[2020-04-17] MEDS ORDERED: METOCLOPRAMIDE HCL 10 MG/2ML VIAL ONE (12:51)
[2020-04-17] MEDS ORDERED: KETOROLAC TROMETHAMINE 60 MG/2 ML VIAL ONE (12:51)
== END 2020-04-17 13:28 | disposition home or self-care (01) ==
LOC: FSED 12:10
DX: G43.909 Migraine, unspecified, not intractable, without status migrainosus (principal); F32.9 Major depressive disorder, single episode, unspecified; K21.9 Gastro-esophageal reflux disease without esophagitis; Z88.1 Allergy status to other antibiotic agents
CPT/HCPCS: 99283; J1200; J1885; J2765

== ENCOUNTER 2020-06-11 18:31 | Emergency (ER) | payer OTHER ==
[~2020-06-11] VITALS: Ht 149.9 cm; Wt 61.2 kg
[2020-06-11] MEDS ORDERED: MORPHINE SULFATE INJ 4 MG/ML INJ 1ML IV STA (19:01)
[2020-06-11] MEDS ORDERED: SODIUM CHLORIDE 0.9% 1000ML 1,000 ML IV STA ×2 (19:01)
[2020-06-11] MEDS ORDERED: ONDANSETRON HCL INJ 2MG/ML 2ML 2 MG/ML VIAL IV ONE (19:15)
[2020-06-11] MEDS ORDERED: FAMOTIDINE 20 MG/2 ML VIAL IV ONE ×2 (19:15→19:39)
[2020-06-11] MEDS ORDERED: SODIUM CHLORIDE 0.9% 1000ML 2,000 ML ONE (19:38)
[2020-06-11] MEDS ORDERED: ONDANSETRON HCL INJ 2MG/ML 2ML 2 MG/ML VIAL ONE (19:38)
[2020-06-11] MEDS ORDERED: MORPHINE SULFATE INJ 4 MG/ML INJ 1ML ONE (19:38)
[2020-06-11] MEDS ORDERED: POTASSIUM CHLORIDE 20 MEQ TAB CR PO STA (19:39)
[2020-06-11] MEDS ORDERED: POTASSIUM CHLORIDE 20 MEQ TAB CR PO ONE ×2 (19:50→19:53)
[2020-06-11] MEDS ORDERED: SODIUM CHLORIDE 0.9% 50ML 50 ML ONE (20:15)
[2020-06-11] MEDS ORDERED: IOPAMIDOL 370 MG/ML 200 ML INFUS..BTL INJ ONE (20:16)
[2020-06-11] MEDS ORDERED: POTASSIUM CHLO20 ME1 PO (21:49)
[2020-06-11] MEDS ORDERED: ULTRAM 50MG50 MG PO (21:49)
[2020-06-11] MEDS ORDERED: FAMOTIDINE20 MG PO (21:49)
[2020-06-11] MEDS ORDERED: ONDANSETRON ODT4 MG PO (21:49)
[2020-06-11 22:05] VITALS: BP 130/80
== END 2020-06-11 22:05 | disposition home or self-care (01) ==
LOC: FSED 18:55
DX: R11.2 Nausea with vomiting, unspecified (principal); K52.9 Noninfective gastroenteritis and colitis, unspecified; E86.0 Dehydration; E87.6 Hypokalemia; K21.9 Gastro-esophageal reflux disease without esophagitis; F32.9 Major depressive disorder, single episode, unspecified; M06.9 Rheumatoid arthritis, unspecified
CPT/HCPCS: 74177; 80053; 81003; 85025; 96374; 99284; J2270; J2405; J7030; Q9967

== ENCOUNTER → 2020-08-03 | Outpatient (CLI) | payer OTHER ==
[~2020-08-03] MED LIST changes: +FAMOTIDINE20 MG PO; +ONDANSETRON ODT4 MG PO; +POTASSIUM CHLO20 ME1 PO; +ULTRAM 50MG50 MG PO
== END ==
LOC: MAMMO 13:57
PROVIDERS: ATTEND Internal Medicine
DX: Z12.31 Encounter for screening mammogram for malignant neoplasm of breast (principal); M94.9 Disorder of cartilage, unspecified; M85.88 Other specified disorders of bone density and structure, other site
CPT/HCPCS: 77067; 77080

== ENCOUNTER → 2020-08-12 | Outpatient (CLI) | payer OTHER ==
[~2020-08-12] MED LIST changes: +IOPAMIDOL 370 MG/ML 200 ML INFUS..BTL INJ ONE; +SODIUM CHLORIDE 0.9% 50ML 50 ML ONE
== END ==
LOC: RAD 12:46
PROVIDERS: ATTEND Internal Medicine
DX: R06.09 Other forms of dyspnea (principal)
CPT/HCPCS: 71260; 93306; Q9967

== ENCOUNTER → 2020-09-14 | Day surgery (SDC) | payer OTHER ==
[2020-09-09 13:29] LABS: BASOPHILS # (AUTO) 0.1 (0.0-0.1); BASOPHILS % 1.2 % (0.0-1.0); EOSINOPHILS # (AUTO) 0.2 (0.0-0.4); EOSINOPHILS % 3.1 % (0.0-6.0); HEMATOCRIT 36.9 % (34.2-44.1); HEMOGLOBIN 11.8 g/dL (12.0-16.0); LYMPHOCYTES # (AUTO) 1.9 (1.0-3.2); LYMPHOCYTES % 32.7 % (18.0-39.1); MEAN CORPUSCULAR HEMOGLOBIN 28.9 pg (28-32); MEAN CORPUSCULAR VOLUME 90.2 fL (81-99); MONOCYTES # (AUTO) 0.6 (0.2-0.8); MONOCYTES % 10.9 % (4.4-11.3); NEUTROPHILS % 51.8 % (38.7-80.0); PLATELET COUNT 258 x10e3/uL (140-360); RED BLOOD COUNT 4.09 x10e6/uL (3.6-5.1); RED CELL DISTRIBUTION WIDTH 14.2 % (11.7-14.4)
[2020-09-09 13:42] LABS: INR 0.84; PARTIAL THROMBOPLASTIN TIME 27.5 seconds (23.8-35.5); PROTHROMBIN TIME 12.1 seconds (11.9-14.5)
[2020-09-09 13:51] LABS: ALANINE AMINOTRANSFERASE 21 IU/L (0-55); ALBUMIN 3.8 g/dL (3.5-5.0); ALKALINE PHOSPHATASE 115 IU/L (40-150); ANION GAP 14.6 mmol/L (8-16); BLOOD UREA NITROGEN 12 mg/dL (7-26); BUN/CREATININE RATIO 19 (6-25); CALCIUM 9.8 mg/dL (8.4-10.2); CARBON DIOXIDE 27 mmol/L (22-29); CHLORIDE 105 mmol/L (98-107); CHOL/HDL RATIO 2.8 (3.0-3.6); CHOLESTEROL 136 MD/DL (0-199); CREATININE, SERUM 0.63 mg/dL (0.57-1.11); EST GLOMERULAR FILTRATION RATE > 60 ML/MIN (60-); GLUCOSE 107 mg/dL (74-118); HDL CHOLESTEROL 49 MG/DL (40-60); LDL CHOLESTEROL 53 MG/DL (60-130); POTASSIUM 3.6 mmol/L (3.5-5.1); SODIUM 143 mmol/L (136-145); TRIGLYCERIDES 168 MG/DL (0-149)
[2020-09-09 14:11] LABS: THYROID STIMULATING HORMONE 1.077 uIU/mL (0.350-4.940)
[2020-09-14] VITALS (11 sets, daily range): BP systolic 105–152; BP diastolic 63–88
[~2020-09-14] VITALS: Ht 149.9 cm; Wt 61.2 kg
[~2020-09-14] MED LIST changes: +CALCIUM600 MG BLADIN; +FENTANYL CITRATE/PF 100MCG/2 ML INJ ONE; +HEPARIN SOD/SOD CHLORIDE 2,000 ML ONE; -LEFLUNOMIDE10 MG; +LEFLUNOMIDE10 MG PO; +LIDOCAINE HCL 2% LOCAL 20 ML VIAL ONE; +MIDAZOLAM HCL 2 MG/2 ML VIAL ONE; -PREDNISONE5 MG; +PREDNISONE5 MG PO; +SODIUM CHLORIDE 0.9% 1000ML 1,000 ML ONE; -SODIUM CHLORIDE 0.9% 50ML 50 ML ONE
== END | disposition home or self-care (01) ==
LOC: CATH LAB 08:07
PROVIDERS: ATTEND Internal Medicine Cardiovascular Disease
DX: I27.20 Pulmonary hypertension, unspecified (principal); I20.8 Other forms of angina pectoris; R06.09 Other forms of dyspnea; I10 Essential (primary) hypertension; R94.31 Abnormal electrocardiogram [ECG] [EKG]; M06.9 Rheumatoid arthritis, unspecified; J45.909 Unspecified asthma, uncomplicated; F32.9 Major depressive disorder, single episode, unspecified; Z88.1 Allergy status to other antibiotic agents; Z01.812 Encounter for preprocedural laboratory examination; Z20.822 Contact with and (suspected) exposure to COVID-19; Z87.01 Personal history of pneumonia (recurrent)
CPT/HCPCS: 36415; 76937; 80053; 80061; 81025; 84443; 85025; 85610; 85730; 93460; C1766; C1769; J2001; J2250; J3010; J7030; Q9967; U0002; 99152; 99153

== ENCOUNTER 2021-01-26 15:03 | Inpatient (IN) | payer OTHER ==
[~2021-01-26] VITALS: Ht 149.9 cm; Wt 63.5 kg
[~2021-01-26 15:03] MED LIST changes: -FENTANYL CITRATE/PF 100MCG/2 ML INJ ONE; -HEPARIN SOD/SOD CHLORIDE 2,000 ML ONE; -IOPAMIDOL 370 MG/ML 200 ML INFUS..BTL INJ ONE; -LIDOCAINE HCL 2% LOCAL 20 ML VIAL ONE; -MIDAZOLAM HCL 2 MG/2 ML VIAL ONE; -SODIUM CHLORIDE 0.9% 1000ML 1,000 ML ONE; -ZOLOFT50 MG; +ZOLOFT50 MG PO
[2021-01-26] MEDS ORDERED: SODIUM CHLORIDE 0.9% 1000ML 1,000 ML IV STA (15:52)
[2021-01-26 16:14] LABS: CLARITY,URINE SL CLOUDY (CLEAR); COLOR,URINE YELLOW (YELLOW); KETONES,URINE TRACE (NEGATIVE); LEUKOCYTE ESTERASE ,URINE NEGATIVE (NEGATIVE); NITRITE,URINE NEGATIVE (NEGATIVE); PROTEIN,URINE DIPSTICK 1+ (NEGATIVE); URINE UROBILINOGEN 0.2 mg/dL (0.2 - 1)
[2021-01-26 16:17] LABS: BASOPHILS # (AUTO) 0.1 (0.0-0.1); BASOPHILS % 1.4 % (0.0-1.0); EOSINOPHILS # (AUTO) 0.2 (0.0-0.4); EOSINOPHILS % 2.9 % (0.0-6.0); HEMATOCRIT 36.8 % (34.2-44.1); HEMOGLOBIN 11.6 g/dL (12.0-16.0); LYMPHOCYTES # (AUTO) 0.7 (1.0-3.2); LYMPHOCYTES % 11.6 % (18.0-39.1); MEAN CORPUSCULAR HEMOGLOBIN 28.9 pg (28-32); MEAN CORPUSCULAR HGB CONC 31.5 g/dL (31-35); MEAN CORPUSCULAR VOLUME 91.5 fL (81-99); MONOCYTES # (AUTO) 0.5 (0.2-0.8); MONOCYTES % 8.5 % (4.4-11.3); NEUTROPHILS # (AUTO) 4.4 (2.1-6.9); NEUTROPHILS % 75.1 % (38.7-80.0); PLATELET COUNT 250 x10e3/uL (140-360); RED BLOOD COUNT 4.02 x10e6/uL (3.6-5.1); RED CELL DISTRIBUTION WIDTH 14.5 % (11.7-14.4)
[2021-01-26 16:28] LABS: AMORPHOUS SEDIMENT,URINE FEW (FEW); BACTERIA,URINE FEW /HPF; EPITHELIAL CELLS,URINE FEW /LPF; RBC,URINE 0-5 /HPF (0-5); WBC,URINE (MAN) 0-5 /HPF (0-5)
[2021-01-26 16:30] LABS: ALBUMIN 3.8 g/dL (3.5-5.0); ANION GAP 15.4 mmol/L (8-16); CALCIUM 8.7 mg/dL (8.4-10.2); CREATINE KINASE 67 IU/L (29-168); CREATININE, SERUM 0.75 mg/dL (0.57-1.11); POTASSIUM 3.4 mmol/L (3.5-5.1)
[2021-01-26] MEDS ORDERED: ONDANSETRON HCL INJ 2MG/ML 2ML 2 MG/ML VIAL IV STA (17:11)
[2021-01-26] MEDS ORDERED: DICYCLOMINE HCL 20 MG/2 ML VIAL IM ONE (17:15)
[2021-01-26 17:33] LABS: AMYLASE 154 U/L (25-125); LIPASE 274 U/L (8-78)
[2021-01-26] MEDS ORDERED: IOPAMIDOL 370 MG/ML 200 ML INFUS..BTL INJ ONE (17:54)
[2021-01-26] MEDS ORDERED: SODIUM CHLORIDE 0.9% 50ML 50 ML ONE (17:54)
[2021-01-26] MEDS: Morphine 4mg Syringe 4 MG/ML INJ IV PRN (19:43)
[2021-01-26] MEDS: SODIUM CHLORIDE 0.9% 1000ML 1,000 ML IV SCH ×3 (19:44→21:58)
[2021-01-26 20:00] VITALS: BP 138/76
[2021-01-26 21:00] VITALS: BP 138/76
[2021-01-26] MEDS ORDERED: LEVOCETIRIZINE D5 MG PO (22:13)
[2021-01-27] VITALS (8 sets, daily range): BP systolic 116–171; BP diastolic 67–92
[2021-01-27] MEDS: Morphine 4mg Syringe 4 MG/ML INJ IV PRN ×2 (01:25→05:50)
[2021-01-27] MEDS: SODIUM CHLORIDE 0.9% 1000ML 1,000 ML IV SCH ×3 (01:25→17:41)
[2021-01-27] MEDS: ONDANSETRON HCL INJ 2MG/ML 2ML 2 MG/ML VIAL IV PRN ×3 (01:26→13:55)
[2021-01-27 05:44] LABS: BASOPHILS # (AUTO) 0.1 (0.0-0.1); BASOPHILS % 1.2 % (0.0-1.0); EOSINOPHILS # (AUTO) 0.1 (0.0-0.4); EOSINOPHILS % 2.3 % (0.0-6.0); HEMATOCRIT 32.3 % (34.2-44.1); HEMOGLOBIN 10.2 g/dL (12.0-16.0); LYMPHOCYTES # (AUTO) 1.3 (1.0-3.2); LYMPHOCYTES % 26.1 % (18.0-39.1); MEAN CORPUSCULAR HEMOGLOBIN 28.9 pg (28-32); MEAN CORPUSCULAR HGB CONC 31.6 g/dL (31-35); MEAN CORPUSCULAR VOLUME 91.5 fL (81-99); MONOCYTES # (AUTO) 0.6 (0.2-0.8); MONOCYTES % 11.9 % (4.4-11.3); NEUTROPHILS # (AUTO) 2.8 (2.1-6.9); NEUTROPHILS % 58.3 % (38.7-80.0); PLATELET COUNT 223 x10e3/uL (140-360); RED BLOOD COUNT 3.53 x10e6/uL (3.6-5.1); RED CELL DISTRIBUTION WIDTH 14.5 % (11.7-14.4)
[2021-01-27 06:14] LABS: ALBUMIN 3.1 g/dL (3.5-5.0); ALBUMIN/GLOBULIN RATIO 0.9 (0.8-2.0); ANION GAP 10.1 mmol/L (8-16); CALCIUM 7.7 mg/dL (8.4-10.2); CREATININE, SERUM 0.58 mg/dL (0.57-1.11); POTASSIUM 3.1 mmol/L (3.5-5.1)
[2021-01-27] MEDS: POTASSIUM CHLORIDE 10MEQ EA PO SCH ×3 (09:05→13:55)
[2021-01-27] MEDS: HYDROXYCHLOROQUINE SULFATE 200 MG TAB PO SCH (09:10)
[2021-01-27] MEDS: CEFTRIAXONE 1 GM in SODIUM CHLORIDE 0.9% 50ML 50 ML IV SCH (09:10)
[2021-01-27] MEDS: SERTRALINE HCL 50 MG TAB PO SCH ×2 (09:10→17:41)
[2021-01-27] MEDS: ACETAMINOPHEN 325 MG TAB PO PRN ×2 (09:56→22:28)
[2021-01-27] MEDS: METRONIDAZOLE 500MG/NS 100ML 100 ML IV SCH ×2 (09:57→17:41)
[2021-01-27] MEDS ORDERED: SUMATRIPTAN SUCCINATE 25 MG TAB PO PRN (15:45)
[2021-01-27] MEDS ORDERED: ACETAMIN/BUTALBITAL/CAFFEINE TAB PO PRN (15:45)
[2021-01-27] MEDS ORDERED: SUMATRIPTAN SUCCINATE 25 MG TAB PO ONE (16:00)
[2021-01-28] VITALS (7 sets, daily range): BP systolic 125–147; BP diastolic 68–87
[2021-01-28 00:05] LABS: FERRITIN 170.89 ng/mL (4.63-204.00)
[2021-01-28] MEDS: METRONIDAZOLE 500MG/NS 100ML 100 ML IV SCH ×3 (01:22→17:13)
[2021-01-28] MEDS: SODIUM CHLORIDE 0.9% 1000ML 1,000 ML IV SCH (01:22)
[2021-01-28 05:01] LABS: BASOPHILS # (AUTO) 0.1 (0.0-0.1); BASOPHILS % 1.7 % (0.0-1.0); EOSINOPHILS # (AUTO) 0.1 (0.0-0.4); EOSINOPHILS % 2.8 % (0.0-6.0); HEMATOCRIT 33.5 % (34.2-44.1); HEMOGLOBIN 10.7 g/dL (12.0-16.0); LYMPHOCYTES # (AUTO) 1.7 (1.0-3.2); LYMPHOCYTES % 46.1 % (18.0-39.1); MEAN CORPUSCULAR HGB CONC 31.9 g/dL (31-35); MEAN CORPUSCULAR VOLUME 90.8 fL (81-99); MONOCYTES # (AUTO) 0.5 (0.2-0.8); MONOCYTES % 13.4 % (4.4-11.3); NEUTROPHILS # (AUTO) 1.3 (2.1-6.9); NEUTROPHILS % 35.7 % (38.7-80.0); PLATELET COUNT 226 x10e3/uL (140-360); RED BLOOD COUNT 3.69 x10e6/uL (3.6-5.1); RED CELL DISTRIBUTION WIDTH 14.5 % (11.7-14.4)
[2021-01-28 05:38] LABS: ALANINE AMINOTRANSFERASE 120 IU/L (0-55); ALBUMIN 3.2 g/dL (3.5-5.0); ALKALINE PHOSPHATASE 156 IU/L (40-150); ANION GAP 14.8 mmol/L (8-16); BLOOD UREA NITROGEN < 5 mg/dL (7-26); CALCIUM 8.5 mg/dL (8.4-10.2); CARBON DIOXIDE 21 mmol/L (22-29); CHLORIDE 110 mmol/L (98-107); CHOL/HDL RATIO 1.9 (3.0-3.6); CHOLESTEROL 110 MD/DL (0-199); CREATININE, SERUM 0.54 mg/dL (0.57-1.11); EST GLOMERULAR FILTRATION RATE 119 ML/MIN (60-); GLUCOSE 92 mg/dL (74-118); HDL CHOLESTEROL 57 MG/DL (40-60); LDL CHOLESTEROL 42 MG/DL (60-130); LIPASE 32 U/L (8-78); MAGNESIUM 1.7 MG/DL (1.3-2.1); PHOSPHORUS 2.9 MG/DL (2.3-4.7); SODIUM 143 mmol/L (136-145); TRIGLYCERIDES 55 MG/DL (0-149)
[2021-01-28 05:51] LABS: BUN/CREATININE RATIO 9 (6-25); POTASSIUM 2.8 mmol/L (3.5-5.1)
[2021-01-28 06:00] LABS: THYROID STIMULATING HORMONE 0.963 uIU/mL (0.350-4.940)
[2021-01-28] MEDS ORDERED: POTASSIUM CHLORIDE 10MEQ EA PO ONE ×2 (07:45→10:00)
[2021-01-28] MEDS: ONDANSETRON HCL INJ 2MG/ML 2ML 2 MG/ML VIAL IV PRN (08:09)
[2021-01-28] MEDS: CEFTRIAXONE 1 GM in SODIUM CHLORIDE 0.9% 50ML 50 ML IV SCH (08:32)
[2021-01-28] MEDS: SERTRALINE HCL 50 MG TAB PO SCH ×2 (08:32→17:13)
[2021-01-28] MEDS: HYDROXYCHLOROQUINE SULFATE 200 MG TAB PO SCH (08:37)
[2021-01-28] MEDS ORDERED: MAGNESIUM SULFATE 2GM/50ML 50 ML IV ONE (09:45)
[2021-01-28] MEDS: D5.45%NS/KCL 20MEQ 1,000 ML IV SCH ×2 (10:02→20:20)
[2021-01-28] MEDS ORDERED: TRAMADOL HCL 50 MG TAB PO PRN (10:45)
[2021-01-28] MEDS: KETOROLAC TROMETHAMINE 30 MG/ML VIAL IV PRN (12:10)
[2021-01-28 16:31] LABS: ANION GAP 10.8 mmol/L (8-16); BLOOD UREA NITROGEN < 5 mg/dL (7-26); BUN/CREATININE RATIO 8 (6-25); CALCIUM 8.8 mg/dL (8.4-10.2); CARBON DIOXIDE 21 mmol/L (22-29); CHLORIDE 111 mmol/L (98-107); CREATININE, SERUM 0.59 mg/dL (0.57-1.11); EST GLOMERULAR FILTRATION RATE 107 ML/MIN (60-); GLUCOSE 128 mg/dL (74-118); SODIUM 139 mmol/L (136-145)
[2021-01-28 16:32] LABS: POTASSIUM 3.8 mmol/L (3.5-5.1)
[2021-01-29] VITALS (8 sets, daily range): BP systolic 122–149; BP diastolic 72–90
[2021-01-29] MEDS: METRONIDAZOLE 500MG/NS 100ML 100 ML IV SCH ×3 (01:12→17:45)
[2021-01-29] MEDS: D5.45%NS/KCL 20MEQ 1,000 ML IV SCH ×2 (06:08→17:45)
[2021-01-29 06:28] LABS: ALANINE AMINOTRANSFERASE 90 IU/L (0-55); ALBUMIN 3.4 g/dL (3.5-5.0); ALKALINE PHOSPHATASE 147 IU/L (40-150); ANION GAP 12.6 mmol/L (8-16); CALCIUM 8.9 mg/dL (8.4-10.2); CARBON DIOXIDE 22 mmol/L (22-29); CHLORIDE 108 mmol/L (98-107); CREATININE, SERUM 0.62 mg/dL (0.57-1.11); EST GLOMERULAR FILTRATION RATE 101 ML/MIN (60-); GLUCOSE 118 mg/dL (74-118); MAGNESIUM 1.8 MG/DL (1.3-2.1); POTASSIUM 3.6 mmol/L (3.5-5.1); SODIUM 139 mmol/L (136-145)
[2021-01-29 06:29] LABS: BUN/CREATININE RATIO 8 (6-25)
[2021-01-29 06:43] LABS: BLOOD UREA NITROGEN < 5 mg/dL (7-26)
[2021-01-29] MEDS: CEFTRIAXONE 1 GM in SODIUM CHLORIDE 0.9% 50ML 50 ML IV SCH (08:55)
[2021-01-29] MEDS: SERTRALINE HCL 50 MG TAB PO SCH ×2 (08:55→16:39)
[2021-01-29] MEDS: HYDROXYCHLOROQUINE SULFATE 200 MG TAB PO SCH (08:55)
[2021-01-29] MEDS: ONDANSETRON HCL INJ 2MG/ML 2ML 2 MG/ML VIAL IV PRN (17:45)
[2021-01-29] MEDS: KETOROLAC TROMETHAMINE 30 MG/ML VIAL IV PRN (17:49)
[2021-01-30] VITALS (7 sets, daily range): BP systolic 113–134; BP diastolic 66–74
[2021-01-30] MEDS: METRONIDAZOLE 500MG/NS 100ML 100 ML IV SCH ×3 (02:00→16:52)
[2021-01-30] MEDS: D5.45%NS/KCL 20MEQ 1,000 ML IV SCH ×2 (04:39→12:00)
[2021-01-30 05:32] LABS: BASOPHILS # (AUTO) 0.1 (0.0-0.1); BASOPHILS % 1.5 % (0.0-1.0); EOSINOPHILS # (AUTO) 0.1 (0.0-0.4); EOSINOPHILS % 2.7 % (0.0-6.0); HEMATOCRIT 34.5 % (34.2-44.1); HEMOGLOBIN 11.1 g/dL (12.0-16.0); LYMPHOCYTES # (AUTO) 2.9 (1.0-3.2); LYMPHOCYTES % 55.4 % (18.0-39.1); MEAN CORPUSCULAR HEMOGLOBIN 28.7 pg (28-32); MEAN CORPUSCULAR HGB CONC 32.2 g/dL (31-35); MEAN CORPUSCULAR VOLUME 89.1 fL (81-99); MONOCYTES # (AUTO) 0.6 (0.2-0.8); MONOCYTES % 10.6 % (4.4-11.3); NEUTROPHILS # (AUTO) 1.5 (2.1-6.9); NEUTROPHILS % 29.6 % (38.7-80.0); PLATELET COUNT 288 x10e3/uL (140-360); RED BLOOD COUNT 3.87 x10e6/uL (3.6-5.1); RED CELL DISTRIBUTION WIDTH 14.3 % (11.7-14.4)
[2021-01-30 06:11] LABS: ALBUMIN 3.5 g/dL (3.5-5.0); ANION GAP 14.8 mmol/L (8-16); CALCIUM 8.8 mg/dL (8.4-10.2); CREATININE, SERUM 0.65 mg/dL (0.57-1.11); POTASSIUM 3.8 mmol/L (3.5-5.1)
[2021-01-30] MEDS: CEFTRIAXONE 1 GM in SODIUM CHLORIDE 0.9% 50ML 50 ML IV SCH (08:23)
[2021-01-30] MEDS: SERTRALINE HCL 50 MG TAB PO SCH ×2 (09:00→16:52)
[2021-01-30] MEDS ORDERED: PROPOFOL IV EMULSION 10 MG/ML 20 ML VIAL ONE (14:58)
[2021-01-30] MEDS ORDERED: FENTANYL CITRATE/PF 100MCG/2 ML INJ ONE (16:21)
[2021-01-30] MEDS ORDERED: MIDAZOLAM HCL 2 MG/2 ML VIAL ONE (16:21)
[2021-01-30] MEDS: HYDROXYCHLOROQUINE SULFATE 200 MG TAB PO SCH (16:52)
[2021-01-30] MEDS: METOCLOPRAMIDE HCL 10 MG/2ML VIAL IV SCH (16:53)
[2021-01-31] VITALS: BP 130/77
[2021-01-31] MEDS: D5.45%NS/KCL 20MEQ 1,000 ML IV SCH ×2 (00:45→08:26)
[2021-01-31] MEDS: METOCLOPRAMIDE HCL 10 MG/2ML VIAL IV SCH ×2 (00:45→06:30)
[2021-01-31] MEDS: METRONIDAZOLE 500MG/NS 100ML 100 ML IV SCH (02:30)
[2021-01-31 04:00] VITALS: BP 104/62
[2021-01-31 07:12] VITALS: BP 113/63
[2021-01-31 07:38] VITALS: BP 113/63
[2021-01-31] MEDS: CEFTRIAXONE 1 GM in SODIUM CHLORIDE 0.9% 50ML 50 ML IV SCH (08:28)
[2021-01-31] MEDS: SERTRALINE HCL 50 MG TAB PO SCH (08:29)
[2021-01-31] MEDS: HYDROXYCHLOROQUINE SULFATE 200 MG TAB PO SCH (08:29)
[2021-01-31] MEDS ORDERED: ONDANSETRON HCL 4 MG ORAL DISINTEGRATING TAB PO PRN (10:15)
[2021-01-31] MEDS ORDERED: METRONIDAZOLE 500 MG TAB PO SCH (10:30)
[2021-01-31] MEDS ORDERED: METOCLOPRAMIDE HCL 10 MG TAB PO SCH (12:00)
[2021-01-31] MEDS ORDERED: PANTOPRAZOLE SOD 40 MG TABEC PO SCH (16:30)
== END 2021-01-31 10:14 | disposition home or self-care (01) | DRG 440 ==
LOC: ER 15:17 → ERHOLD 18:44 → MED/SURG 20:46
PROVIDERS: ADMIT Internal Medicine; ATTEND Internal Medicine
PROC: 0DB78ZX Excision of Stomach, Pylorus, Via Natural or Artificial Opening Endoscopic, Diagnostic (ICD-10-PCS; 2021-01-30)
PROC: 0DB58ZX Excision of Esophagus, Via Natural or Artificial Opening Endoscopic, Diagnostic (ICD-10-PCS; 2021-01-30)
PROC: 0DB98ZX Excision of Duodenum, Via Natural or Artificial Opening Endoscopic, Diagnostic (ICD-10-PCS; principal; 2021-01-30 15:00)
DX: K85.10 Biliary acute pancreatitis without necrosis or infection (principal); K75.89 Other specified inflammatory liver diseases; K29.70 Gastritis, unspecified, without bleeding; F32.A Depression, unspecified; F41.9 Anxiety disorder, unspecified; K21.9 Gastro-esophageal reflux disease without esophagitis; D63.8 Anemia in other chronic diseases classified elsewhere; M06.9 Rheumatoid arthritis, unspecified; Z20.822 Contact with and (suspected) exposure to COVID-19; G43.909 Migraine, unspecified, not intractable, without status migrainosus; K52.9 Noninfective gastroenteritis and colitis, unspecified
CPT/HCPCS: 36415; 43239; 71045; 74177; 74181; 80048; 80053; 80061; 81001; 81025; 82150; 82550; 82553; 82607; 82728; 82746; 83540; 83690; 83735; 84100; 84443; 84466; 84484; 85025; 85045; 88305; 88312; 93005; 96361; 99284; J0500; J0696; J1885; J2250; J2270; J2405; J2765; J3010; J3475; J7030; Q9967; U0002

== ENCOUNTER 2021-04-19 20:54 | Emergency (ER) | payer BC, OTHER ==
[~2021-04-19] VITALS: Ht 149.9 cm; Wt 63.5 kg
[~2021-04-19 20:54] MED LIST changes: +LEVOCETIRIZINE D5 MG PO
[2021-04-19] MEDS ORDERED: ONDANSETRON HCL INJ 2MG/ML 2ML 2 MG/ML VIAL IV STA (21:36)
[2021-04-19] MEDS ORDERED: KETOROLAC TROMETHAMINE 30 MG/ML VIAL IV STA (21:36)
[2021-04-19] MEDS ORDERED: SODIUM CHLORIDE 0.9% 1000ML 1,000 ML IV SCH (21:45)
[2021-04-19] MEDS ORDERED: CEFTRIAXONE 1 GM in SODIUM CHLORIDE 0.9% 50ML 50 ML IV ONE (22:15)
[2021-04-19] MEDS ORDERED: CEFTRIAXONE 1 GM VIAL ONE (22:19)
[2021-04-19] MEDS ORDERED: SODIUM CHLORIDE 0.9% 500ML 500 ML IV ONE (23:15)
[2021-04-19] MEDS ORDERED: DEXAMETHASONE SOD PHOS INJ 4 MG/ML SDV IV ONE (23:15)
[2021-04-19] MEDS ORDERED: METOCLOPRAMIDE HCL 10 MG/2ML VIAL IV ONE (23:15)
[2021-04-19] MEDS ORDERED: DIPHENHYDRAMINE HCL INJ 50 MG/ML VIAL IV ONE (23:15)
[2021-04-19] MEDS ORDERED: DEXAMETHASONE SOD PHOS INJ 4 MG/ML SDV ONE (23:25)
[2021-04-19] MEDS ORDERED: DIPHENHYDRAMINE HCL INJ 50 MG/ML VIAL ONE (23:25)
[2021-04-19] MEDS ORDERED: METOCLOPRAMIDE HCL 10 MG/2ML VIAL ONE (23:25)
[2021-04-19] MEDS ORDERED: SODIUM CHLORIDE 0.9% 100 ML ONE (23:26)
[2021-04-20] MEDS ORDERED: VENTOLIN HFA18 GM INH (01:07)
[2021-04-20] MEDS ORDERED: CEFDINIR300 MG PO (01:08)
[2021-04-20] MEDS ORDERED: ONDANSETRON ODT4 MG PO (01:09)
[2021-04-20] MEDS ORDERED: FIORICET 50-301 EACH PO (01:10)
== END 2021-04-20 02:00 | disposition home or self-care (01) ==
LOC: FSED 21:37
DX: J18.9 Pneumonia, unspecified organism (principal); R05.9 Cough, unspecified; E86.0 Dehydration; R51.9 Headache, unspecified; K21.9 Gastro-esophageal reflux disease without esophagitis; M06.9 Rheumatoid arthritis, unspecified; D84.9 Immunodeficiency, unspecified; F32.A Depression, unspecified
CPT/HCPCS: 71046; 99284; J0696; J1100; J1200; J2765; J7050

== ENCOUNTER 2021-05-21 20:34 | Emergency (ER) | payer BC ==
[~2021-05-21] VITALS: Ht 149.9 cm; Wt 63.5 kg
[~2021-05-21 20:34] MED LIST changes: +FIORICET 50-301 EACH PO; +VENTOLIN HFA18 GM INH
[2021-05-21] MEDS ORDERED: KETOROLAC TROMETHAMINE 30 MG/ML VIAL IV STA (20:42)
[2021-05-21] MEDS ORDERED: KETOROLAC TROMETHAMINE 60 MG/2 ML VIAL IM ONE (20:45)
[2021-05-21] MEDS ORDERED: KETOROLAC TROMETHAMINE 60 MG/2 ML VIAL ONE (20:56)
[2021-05-21 20:57] LABS: BASOPHILS # (AUTO) 0.1 (0.0-0.1); BASOPHILS % 1.6 % (0.0-1.0); EOSINOPHILS # (AUTO) 0.2 (0.0-0.4); HEMATOCRIT 38.5 % (34.2-44.1); HEMOGLOBIN 12.2 g/dL (12.0-16.0); LYMPHOCYTES # (AUTO) 3.5 (1.0-3.2); LYMPHOCYTES % 45.7 % (18.0-39.1); MEAN CORPUSCULAR HEMOGLOBIN 28.4 pg (28-32); MEAN CORPUSCULAR HGB CONC 31.7 g/dL (31-35); MEAN CORPUSCULAR VOLUME 89.5 fL (81-99); MONOCYTES # (AUTO) 0.7 (0.2-0.8); MONOCYTES % 8.6 % (4.4-11.3); NEUTROPHILS # (AUTO) 3.1 (2.1-6.9); PLATELET COUNT 312 x10e3/uL (140-360); RED CELL DISTRIBUTION WIDTH 13.3 % (11.7-14.4)
[2021-05-21 21:17] LABS: ALBUMIN 4.2 g/dL (3.5-5.0); ALBUMIN/GLOBULIN RATIO 1.1 (0.8-2.0); ANION GAP 15.5 mmol/L (8-16); CALCIUM 9.3 mg/dL (8.4-10.2); CREATININE, SERUM 0.69 mg/dL (0.57-1.11); POTASSIUM 3.5 mmol/L (3.5-5.1)
[2021-05-21 21:49] LABS: CREATINE KINASE MB 0.6 ng/mL (0-5.0)
== END 2021-05-21 22:41 | disposition home or self-care (01) ==
LOC: ER 20:43
DX: R07.89 Other chest pain (principal); I10 Essential (primary) hypertension; M06.9 Rheumatoid arthritis, unspecified; F32.A Depression, unspecified; Z87.01 Personal history of pneumonia (recurrent); R94.31 Abnormal electrocardiogram [ECG] [EKG]
CPT/HCPCS: 36415; 71045; 80053; 82550; 82553; 84484; 85025; 93005; 99283; J1885

== ENCOUNTER → 2021-06-09 | Outpatient (CLI) | payer BC | LOC: RAD 12:21 | PROVIDERS: ATTEND Internal Medicine Rheumatology | DX: M13.89 Other specified arthritis, multiple sites (principal) | CPT/HCPCS: 71111; 71120 ==

== ENCOUNTER → 2021-08-25 | Outpatient (CLI) | payer BC | LOC: MAMMO 13:15 | PROVIDERS: ATTEND Internal Medicine | DX: Z12.31 Encounter for screening mammogram for malignant neoplasm of breast (principal) | CPT/HCPCS: 77067 ==

== ENCOUNTER 2021-09-10 12:25 | Emergency (ER) | payer BC ==
[~2021-09-10] VITALS: Ht 149.9 cm; Wt 63.5 kg
[2021-09-10] MEDS ORDERED: KETOROLAC TROMETHAMINE 30 MG/ML VIAL IM ONE (12:45)
[2021-09-10] MEDS ORDERED: DEXAMETHASONE SOD PHOS 10 MG/1 ML VIAL IM ONE (12:45)
[2021-09-10] MEDS ORDERED: ACETAMINOPHEN 325 MG TAB PO ONE (12:45)
== END 2021-09-10 13:13 | disposition home or self-care (01) ==
LOC: ER 12:31
DX: M54.41 Lumbago with sciatica, right side (principal)
CPT/HCPCS: 99282; J1100; J1885

== ENCOUNTER 2021-09-12 16:59 | Emergency (ER) | payer BC ==
[~2021-09-12] VITALS: Ht 149.9 cm; Wt 63.5 kg
[~2021-09-12 16:59] MED LIST changes: -ACETAMINOPHEN-1 EAC4 PO; -BACTRIM 400-801 EACH PO
[2021-09-12] MEDS ORDERED: METHYLPREDNISOLONE SOD SUCC 125 MG/2ML VIAL IV STA (17:10)
[2021-09-12] MEDS ORDERED: Morphine 4mg Syringe 4 MG/ML INJ IV STA (17:10)
[2021-09-12] MEDS ORDERED: ONDANSETRON HCL INJ 2MG/ML 2ML 2 MG/ML VIAL IV STA (17:10)
[2021-09-12 17:45] LABS: CLARITY,URINE SL CLOUDY (CLEAR); COLOR,URINE YELLOW (YELLOW); KETONES,URINE NEGATIVE (NEGATIVE); LEUKOCYTE ESTERASE ,URINE MODERATE (NEGATIVE); NITRITE,URINE NEGATIVE (NEGATIVE); PROTEIN,URINE DIPSTICK NEGATIVE (NEGATIVE); URINE UROBILINOGEN 0.2 mg/dL (0.2 - 1)
[2021-09-12 17:52] LABS: BASOPHILS # (AUTO) 0.2 (0.0-0.1); BASOPHILS % 1.3 % (0.0-1.0); EOSINOPHILS # (AUTO) 0.1 (0.0-0.4); EOSINOPHILS % 1.3 % (0.0-6.0); HEMATOCRIT 42.3 % (34.2-44.1); HEMOGLOBIN 13.4 g/dL (12.0-16.0); LYMPHOCYTES # (AUTO) 4.5 (1.0-3.2); LYMPHOCYTES % 40.5 % (18.0-39.1); MEAN CORPUSCULAR HEMOGLOBIN 28.2 pg (28-32); MEAN CORPUSCULAR HGB CONC 31.7 g/dL (31-35); MEAN CORPUSCULAR VOLUME 88.9 fL (81-99); MONOCYTES # (AUTO) 0.9 (0.2-0.8); MONOCYTES % 8.4 % (4.4-11.3); NEUTROPHILS # (AUTO) 5.4 (2.1-6.9); NEUTROPHILS % 48.2 % (38.7-80.0); PLATELET COUNT 340 x10e3/uL (140-360); RED BLOOD COUNT 4.76 x10e6/uL (3.6-5.1); RED CELL DISTRIBUTION WIDTH 13.6 % (11.7-14.4)
[2021-09-12 17:53] LABS: BACTERIA,URINE MODERATE /HPF; EPITHELIAL CELLS,URINE MODERATE /LPF; TRANSITIONAL EPI CELLS,URINE FEW
[2021-09-12 18:05] LABS: ALBUMIN/GLOBULIN RATIO 0.8 (0.8-2.0); ANION GAP 15.7 mmol/L (8-16); CALCIUM 9.2 mg/dL (8.4-10.2); CREATININE, SERUM 0.8 mg/dL (0.57-1.11); POTASSIUM 3.7 mmol/L (3.5-5.1)
[2021-09-12] MEDS ORDERED: BACTRIM 400-801 EACH PO (19:31)
[2021-09-12] MEDS ORDERED: ACETAMINOPHEN-1 EAC4 PO (19:31)
[2021-09-12] MEDS ORDERED: PREDNISONE20 MG PO (19:31)
[2021-09-12] MEDS ORDERED: Morphine 2mg Syringe 2 MG/ML SYR IV STA (19:36)
[2021-09-12 20:13] VITALS: BP 128/84
== END 2021-09-12 19:40 | disposition home or self-care (01) ==
LOC: ER 17:03
DX: M54.50 Low back pain, unspecified (principal); N39.0 Urinary tract infection, site not specified; M06.9 Rheumatoid arthritis, unspecified; I10 Essential (primary) hypertension; F32.A Depression, unspecified
CPT/HCPCS: 36415; 74176; 80053; 81001; 83690; 85025; 99284; J2270 ×2; J2405; J2930

== ENCOUNTER → 2021-09-12 | Outpatient (CLI) | payer BC ==
[~2021-09-12] MED LIST changes: +ACETAMINOPHEN-1 EAC4 PO; +BACTRIM 400-801 EACH PO
== END ==
LOC: RAD 16:19
PROVIDERS: ATTEND Internal Medicine Rheumatology
DX: M06.9 Rheumatoid arthritis, unspecified (principal); M54.50 Low back pain, unspecified
CPT/HCPCS: 72100; 72170

== ENCOUNTER → 2021-09-20 | Outpatient (CLI) | payer BC ==
[~2021-09-20] MED LIST changes: +ACETAMINOPHEN-1 EAC4 PO; +BACTRIM 400-801 EACH PO
== END ==
LOC: MRI 10:29
PROVIDERS: ATTEND Internal Medicine
DX: M54.16 Radiculopathy, lumbar region (principal)
CPT/HCPCS: 72148

== ENCOUNTER 2021-10-11 14:37 | Outpatient (RCR) | payer BC | END 2021-10-12 | LOC: PT 14:37 | PROVIDERS: ATTEND Internal Medicine Rheumatology | DX: M54.50 Low back pain, unspecified (principal) ==

== ENCOUNTER 2021-11-01 16:19 | Outpatient (RCR) | payer BC ==
[2021-11-07] MEDS ORDERED: PROTONIX40 MG/ML (10:38)
[2021-11-07] MEDS ORDERED: DIOVAN80 MG PO (10:38)
[2021-11-07] MEDS ORDERED: HUMIRA PEN40 MG/0.8 (10:38)
== END 2021-11-12 ==
LOC: PT 16:19
PROVIDERS: ATTEND Internal Medicine Rheumatology
DX: M54.50 Low back pain, unspecified (principal)

== ENCOUNTER → 2021-11-09 | Day surgery (SDC) | payer BC ==
[~2021-11-09] MED LIST changes: +BUPIVACAINE HCL 0.5% INJ 30 ML VIAL INJ ONE; +DIOVAN80 MG PO; +HUMIRA PEN40 MG/0.8; +IOPAMIDOL 200 MG/ML 20 ML VIAL IT ONE; +LIDOCAINE HCL 1% 30ML-PF VIAL ONE; +MIDAZOLAM HCL 2 MG/2 ML VIAL ONE; +POVIDONE IODINE 0.05% 0.05 % ML PO ONE; +PROPOFOL IV EMULSION 10 MG/ML 20 ML VIAL ONE; +PROTONIX40 MG/ML
[2021-11-09 07:40] VITALS: BP 115/71
== END | disposition home or self-care (01) ==
LOC: OR 06:55
PROVIDERS: ATTEND Physical Medicine & Rehabilitation Pain Medicine
DX: M47.896 Other spondylosis, lumbar region (principal); K21.9 Gastro-esophageal reflux disease without esophagitis; I10 Essential (primary) hypertension; M06.9 Rheumatoid arthritis, unspecified; G89.29 Other chronic pain; Z88.1 Allergy status to other antibiotic agents; Z01.810 Encounter for preprocedural cardiovascular examination; Z20.822 Contact with and (suspected) exposure to COVID-19; Z79.899 Other long term (current) drug therapy
CPT/HCPCS: 0223U; 36415; 77003; 93005; J2001; J2250; Q9967

== ENCOUNTER 2021-12-06 18:30 | Emergency (ER) | payer BC ==
[~2021-12-06] VITALS: Ht 149.9 cm; Wt 63.5 kg
[~2021-12-06 18:30] MED LIST changes: -BUPIVACAINE HCL 0.5% INJ 30 ML VIAL INJ ONE; -IOPAMIDOL 200 MG/ML 20 ML VIAL IT ONE; -LIDOCAINE HCL 1% 30ML-PF VIAL ONE; -MIDAZOLAM HCL 2 MG/2 ML VIAL ONE; -POVIDONE IODINE 0.05% 0.05 % ML PO ONE; -PROPOFOL IV EMULSION 10 MG/ML 20 ML VIAL ONE
[2021-12-06] MEDS ORDERED: HYDROCODONE/APAP 5MG-325MG TAB ONE (20:13)
[2021-12-06] MEDS ORDERED: KETOROLAC TROMETHAMINE 30 MG/ML VIAL IM STA (20:14)
[2021-12-06] MEDS ORDERED: PREDNISONE 20 MG TAB PO ONE (20:15)
[2021-12-06] MEDS ORDERED: CYCLOBENZAPRINE HCL 10 MG TAB PO ONE (20:15)
[2021-12-06] MEDS ORDERED: PREDNISONE50 MG PO (20:20)
[2021-12-06] MEDS ORDERED: CYCLOBENZAPRINE10 MG PO (20:21)
[2021-12-06] MEDS ORDERED: HYDROCODON-ACE1 EA12 PO (20:23)
[2021-12-06] MEDS ORDERED: KETOROLAC TROMETHAMINE 30 MG/ML VIAL ONE (20:26)
[2021-12-06] MEDS ORDERED: CYCLOBENZAPRINE HCL 10 MG TAB ONE (20:26)
== END 2021-12-06 20:34 | disposition home or self-care (01) ==
LOC: FSED 18:47
DX: M54.16 Radiculopathy, lumbar region (principal); I10 Essential (primary) hypertension; M06.9 Rheumatoid arthritis, unspecified; F32.A Depression, unspecified
CPT/HCPCS: 99282; J1885

== ENCOUNTER 2021-12-08 13:44 | Outpatient (RCR) | payer BC ==
[~2021-12-08 13:44] MED LIST changes: +CYCLOBENZAPRINE10 MG PO; +HYDROCODON-ACE1 EA12 PO; +PREDNISONE50 MG PO
== END 2021-12-13 ==
LOC: PT 13:44
PROVIDERS: ATTEND Internal Medicine Rheumatology
DX: M54.50 Low back pain, unspecified (principal)

== ENCOUNTER → 2021-12-28 | Day surgery (SDC) | payer BC ==
[~2021-12-28] MED LIST changes: +FENTANYL CITRATE/PF 100MCG/2 ML INJ ONE; +IOPAMIDOL 200 MG/ML 20 ML VIAL IT ONE; +LIDOCAINE HCL 1% 30ML-PF VIAL ONE; +LIDOCAINE HCL 2% LOCAL INJ 5 ML SDV VIAL INJ ONE; +MIDAZOLAM HCL 2 MG/2 ML VIAL ONE; +POVIDONE IODINE 0.05% 0.05 % ML PO ONE; +PROPOFOL IV EMULSION 10 MG/ML 20 ML VIAL ONE; +TRIAMCINOLONE ACET 40 MG/ML VIAL ONE
[2021-12-28 07:05] VITALS: BP 125/75
== END | disposition home or self-care (01) ==
LOC: OR 07:04
PROVIDERS: ATTEND Physical Medicine & Rehabilitation Pain Medicine
DX: M46.1 Sacroiliitis, not elsewhere classified (principal); Z98.1 Arthrodesis status; M47.896 Other spondylosis, lumbar region; I10 Essential (primary) hypertension; J45.909 Unspecified asthma, uncomplicated; M06.9 Rheumatoid arthritis, unspecified; K44.9 Diaphragmatic hernia without obstruction or gangrene; Z88.1 Allergy status to other antibiotic agents; Z01.810 Encounter for preprocedural cardiovascular examination; Z79.899 Other long term (current) drug therapy
CPT/HCPCS: 93005; G0260; J2001 ×2; J2250; J2704; J3010; J3301; Q9967; 77003

== ENCOUNTER → 2022-01-12 | Outpatient (RCR) | payer BC ==
[~2022-01-12] MED LIST changes: -FENTANYL CITRATE/PF 100MCG/2 ML INJ ONE; -IOPAMIDOL 200 MG/ML 20 ML VIAL IT ONE; -LIDOCAINE HCL 1% 30ML-PF VIAL ONE; -LIDOCAINE HCL 2% LOCAL INJ 5 ML SDV VIAL INJ ONE; -MIDAZOLAM HCL 2 MG/2 ML VIAL ONE; -POVIDONE IODINE 0.05% 0.05 % ML PO ONE; -PROPOFOL IV EMULSION 10 MG/ML 20 ML VIAL ONE; -TRIAMCINOLONE ACET 40 MG/ML VIAL ONE
== END ==
LOC: PT 01-03 16:03
PROVIDERS: ATTEND Internal Medicine Rheumatology
DX: M54.50 Low back pain, unspecified (principal); M62.81 Muscle weakness (generalized)

== ENCOUNTER 2022-01-15 07:19 | Outpatient (RCR) | payer BC ==
[2022-01-26] MEDS ORDERED: PROMETHAZI6.25 MG/5 PO (16:09)
[2022-01-26] MEDS ORDERED: ALBUTEROL0.63 MG/3 NEB (16:09)
[2022-01-26] MEDS ORDERED: CEFUROXIME250 MG PO (16:09)
[2022-01-26] MEDS ORDERED: TRELEGY ELLIPT1 EACH INH (16:09)
[2022-01-30] MEDS ORDERED: medrol (10:05)
[2022-01-30] MEDS ORDERED: ONDANSETRON ODT4 MG SL (10:06)
[2022-01-30] MEDS ORDERED: MUCINEX600 MG PO (10:07)
[2022-01-30] MEDS ORDERED: DOXYCYCLINE MO100 M1 PO (10:08)
[2022-01-30] MEDS ORDERED: PROAIR HFA INH8.5 GM INH (10:10)
[2022-01-30] MEDS ORDERED: duoneb INH (10:12)
[2022-01-30] MEDS ORDERED: tessalon perles PO (10:13)
== END 2022-02-12 ==
LOC: PT 07:19
PROVIDERS: ATTEND Internal Medicine Rheumatology
DX: M54.50 Low back pain, unspecified (principal); M62.81 Muscle weakness (generalized)

== ENCOUNTER 2022-01-26 10:49 | Inpatient (IN) | payer BC ==
[~2022-01-26] VITALS: Ht 149.9 cm; Wt 63.5 kg
[~2022-01-26 10:49] MED LIST changes: -ALBUTEROL0.63 MG/3 NEB; -CEFUROXIME250 MG PO; -PROMETHAZI6.25 MG/5 PO; -TRELEGY ELLIPT1 EACH INH
[2022-01-26] MEDS ORDERED: SODIUM CHLORIDE 0.9% 1000ML 1,000 ML IV STA (12:24)
[2022-01-26] MEDS ORDERED: ONDANSETRON HCL INJ 2MG/ML 2ML 2 MG/ML VIAL IV STA (12:24)
[2022-01-26 12:47] LABS: BASOPHILS % 0.3 % (0.0-1.0); HEMATOCRIT 39.1 % (34.2-44.1); HEMOGLOBIN 12.2 g/dL (12.0-16.0); LYMPHOCYTES # (AUTO) 1.7 (1.0-3.2); LYMPHOCYTES % 28.8 % (18.0-39.1); MEAN CORPUSCULAR HEMOGLOBIN 28.4 pg (28-32); MEAN CORPUSCULAR HGB CONC 31.2 g/dL (31-35); MEAN CORPUSCULAR VOLUME 90.9 fL (81-99); MONOCYTES # (AUTO) 0.3 (0.2-0.8); MONOCYTES % 4.7 % (4.4-11.3); NEUTROPHILS # (AUTO) 3.8 (2.1-6.9); NEUTROPHILS % 65.9 % (38.7-80.0); PLATELET COUNT 313 x10e3/uL (140-360); RED CELL DISTRIBUTION WIDTH 13.1 % (11.7-14.4)
[2022-01-26] MEDS: CEFEPIME 2 GM in SODIUM CHLORIDE 0.9% 100 ML IV SCH (12:54)
[2022-01-26 13:01] LABS: INR 0.85; PARTIAL THROMBOPLASTIN TIME 29.7 seconds (23.8-35.5); PROTHROMBIN TIME 12.4 seconds (11.9-14.5)
[2022-01-26 13:09] LABS: ALANINE AMINOTRANSFERASE 91 IU/L (0-55); ALBUMIN 3.7 g/dL (3.5-5.0); ALBUMIN/GLOBULIN RATIO 0.8 (0.8-2.0); ALKALINE PHOSPHATASE 118 IU/L (40-150); ANION GAP 15.2 mmol/L (8-16); BLOOD UREA NITROGEN 10 mg/dL (7-26); BUN/CREATININE RATIO 13 (6-25); CALCIUM 9.7 mg/dL (8.4-10.2); CARBON DIOXIDE 24 mmol/L (22-29); CHLORIDE 105 mmol/L (98-107); CREATINE KINASE 32 IU/L (29-168); CREATININE, SERUM 0.79 mg/dL (0.57-1.11); GLUCOSE 218 mg/dL (74-118); MAGNESIUM 1.8 MG/DL (1.3-2.1); POTASSIUM 3.2 mmol/L (3.5-5.1); SODIUM 141 mmol/L (136-145)
[2022-01-26] MEDS ORDERED: ACETAMINOPHEN 325 MG TAB PO ONE ×2 (14:00)
[2022-01-26] MEDS: Doxycycline IV 100 MG in SODIUM CHLORIDE 0.9% 100 ML IV SCH ×2 (14:06→21:07)
[2022-01-26] MEDS ORDERED: POTASSIUM CHLORIDE 20 MEQ TAB CR PO STA (14:22)
[2022-01-26 15:00] VITALS: BP 152/80
[2022-01-26 15:22] VITALS: BP 152/80
[2022-01-26] MEDS ORDERED: CEFUROXIME250 MG PO (16:09)
[2022-01-26] MEDS ORDERED: ALBUTEROL0.63 MG/3 NEB (16:09)
[2022-01-26] MEDS ORDERED: TRELEGY ELLIPT1 EACH INH (16:09)
[2022-01-26] MEDS ORDERED: PROMETHAZI6.25 MG/5 PO (16:09)
[2022-01-26] MEDS ORDERED: BENZONATATE 100 MG CAP PO PRN (16:15)
[2022-01-26] MEDS ORDERED: ALBUTEROL/IPRATROPIUM 3 ML NEB NEB PRN (16:15)
[2022-01-26] MEDS: VALSARTAN 80 MG TAB PO SCH (18:29)
[2022-01-26] MEDS: ALBUTEROL/IPRATROPIUM 3 ML NEB NEB SCH (19:50)
[2022-01-26 20:00] VITALS: BP 138/72
[2022-01-26 20:16] VITALS: BP 152/80
[2022-01-26] MEDS: ACETAMINOPHEN 325 MG TAB PO PRN (21:08)
[2022-01-26] MEDS ORDERED: SODIUM CHLORIDE 0.9% 250ML 250 ML ONE (21:25)
[2022-01-27] VITALS (7 sets, daily range): BP systolic 111–133; BP diastolic 63–81
[2022-01-27] MEDS: CEFEPIME 2 GM in SODIUM CHLORIDE 0.9% 100 ML IV SCH ×2 (01:14→12:52)
[2022-01-27] MEDS: ALBUTEROL/IPRATROPIUM 3 ML NEB NEB SCH ×4 (01:45→19:00)
[2022-01-27] MEDS: BUDESONIDE 0.5MG/2 ML NEB INH SCH ×2 (07:22→19:15)
[2022-01-27] MEDS: VALSARTAN 80 MG TAB PO SCH (08:54)
[2022-01-27] MEDS: ACETAMINOPHEN 325 MG TAB PO PRN (08:55)
[2022-01-27] MEDS: Doxycycline IV 100 MG in SODIUM CHLORIDE 0.9% 100 ML IV SCH (08:55)
[2022-01-27] MEDS ORDERED: VALSARTAN 80 MG TAB PO SCH (09:00)
[2022-01-27] MEDS ORDERED: GUAIFENESIN/CODEINE 5 ML LIQD PO PRN (09:45)
[2022-01-27] MEDS ORDERED: DOXYCYCLINE HYCLATE TABLET 100 MG TAB PO SCH (10:00)
[2022-01-27] MEDS ORDERED: HYDRALAZINE HCL 20 MG/ML VIAL IV PRN (10:30)
[2022-01-27] MEDS: METHYLPREDNISOLONE SOD SUCC 40 MG/ML VIAL 1ML IV SCH ×2 (11:04→21:08)
[2022-01-27] MEDS: GUAIFENESIN 600 MG TAB PO SCH ×2 (11:05→16:53)
[2022-01-27] MEDS: SERTRALINE HCL 50 MG TAB PO SCH (16:54)
[2022-01-27] MEDS: ENOXAPARIN SOD INJ 40 MG/0.4 ML SYR SC SCH (16:54)
[2022-01-27] MEDS: DOXYCYCLINE HYCLATE TABLET 100 MG TAB PO SCH (16:54)
[2022-01-27] MEDS: PANTOPRAZOLE SOD 40 MG TABEC PO SCH (19:55)
[2022-01-27] MEDS: ONDANSETRON HCL INJ 2MG/ML 2ML 2 MG/ML VIAL IV PRN ×2 (21:06→22:55)
[2022-01-28] VITALS (8 sets, daily range): BP systolic 106–141; BP diastolic 69–84
[2022-01-28] MEDS: CEFEPIME 2 GM in SODIUM CHLORIDE 0.9% 100 ML IV SCH ×2 (00:17→12:36)
[2022-01-28] MEDS: ALBUTEROL/IPRATROPIUM 3 ML NEB NEB SCH ×3 (07:05→19:00)
[2022-01-28] MEDS: BUDESONIDE 0.5MG/2 ML NEB INH SCH ×2 (07:05→19:15)
[2022-01-28] MEDS ORDERED: PANTOPRAZOLE SOD 40 MG TABEC PO SCH (07:30)
[2022-01-28] MEDS: VALSARTAN 80 MG TAB PO SCH (08:43)
[2022-01-28] MEDS: METHYLPREDNISOLONE SOD SUCC 40 MG/ML VIAL 1ML IV SCH ×2 (08:43→22:21)
[2022-01-28] MEDS: GUAIFENESIN 600 MG TAB PO SCH ×2 (08:44→16:53)
[2022-01-28] MEDS: PANTOPRAZOLE SOD 40 MG TABEC PO SCH (08:44)
[2022-01-28] MEDS: SERTRALINE HCL 50 MG TAB PO SCH ×2 (08:44→16:53)
[2022-01-28] MEDS: DOXYCYCLINE HYCLATE TABLET 100 MG TAB PO SCH ×2 (08:44→16:53)
[2022-01-28] MEDS: HYDROCODONE/APAP 5MG-325MG TAB PO PRN (12:37)
[2022-01-28] MEDS: ENOXAPARIN SOD INJ 40 MG/0.4 ML SYR SC SCH (16:53)
[2022-01-29] VITALS (8 sets, daily range): BP systolic 126–148; BP diastolic 68–91
[2022-01-29] MEDS: CEFEPIME 2 GM in SODIUM CHLORIDE 0.9% 100 ML IV SCH (01:08)
[2022-01-29] MEDS: BUDESONIDE 0.5MG/2 ML NEB INH SCH ×2 (07:15→19:25)
[2022-01-29] MEDS: ALBUTEROL/IPRATROPIUM 3 ML NEB NEB SCH ×5 (07:15→23:15)
[2022-01-29] MEDS: DOXYCYCLINE HYCLATE TABLET 100 MG TAB PO SCH ×2 (08:48→17:45)
[2022-01-29] MEDS: VALSARTAN 80 MG TAB PO SCH (08:49)
[2022-01-29] MEDS: SERTRALINE HCL 50 MG TAB PO SCH ×2 (08:49→17:45)
[2022-01-29] MEDS: HYDROCODONE/APAP 5MG-325MG TAB PO PRN (08:49)
[2022-01-29] MEDS: PANTOPRAZOLE SOD 40 MG TABEC PO SCH (08:50)
[2022-01-29] MEDS: GUAIFENESIN 600 MG TAB PO SCH ×2 (08:50→17:45)
[2022-01-29] MEDS: METHYLPREDNISOLONE SOD SUCC 40 MG/ML VIAL 1ML IV SCH ×2 (08:50→21:34)
[2022-01-29] MEDS ORDERED: POTASSIUM CHLORIDE 20 MEQ TAB CR PO PRN (10:15)
[2022-01-29 10:37] LABS: BASOPHILS % 0.1 % (0.0-1.0); HEMATOCRIT 38.4 % (34.2-44.1); LYMPHOCYTES # (AUTO) 1.6 (1.0-3.2); LYMPHOCYTES % 18.5 % (18.0-39.1); MEAN CORPUSCULAR HEMOGLOBIN 28.5 pg (28-32); MEAN CORPUSCULAR HGB CONC 31.3 g/dL (31-35); MEAN CORPUSCULAR VOLUME 91.2 fL (81-99); MONOCYTES # (AUTO) 0.4 (0.2-0.8); MONOCYTES % 4.7 % (4.4-11.3); NEUTROPHILS # (AUTO) 6.4 (2.1-6.9); NEUTROPHILS % 76.2 % (38.7-80.0); PLATELET COUNT 338 x10e3/uL (140-360); RED BLOOD COUNT 4.21 x10e6/uL (3.6-5.1); RED CELL DISTRIBUTION WIDTH 12.8 % (11.7-14.4)
[2022-01-29] MEDS: ACETYLCYSTEINE 200 MG/ML 4ML VIAL INH SCH ×2 (10:46→19:05)
[2022-01-29 11:08] LABS: ANION GAP 12.5 mmol/L (8-16); CALCIUM 9.2 mg/dL (8.4-10.2); CREATININE, SERUM 0.71 mg/dL (0.57-1.11); POTASSIUM 3.5 mmol/L (3.5-5.1)
[2022-01-29] MEDS ORDERED: ONDANSETRON HCL 4 MG ORAL DISINTEGRATING TAB PO PRN (11:45)
[2022-01-29] MEDS: ENOXAPARIN SOD INJ 40 MG/0.4 ML SYR SC SCH (17:45)
[2022-01-30] VITALS: BP 139/80
[2022-01-30] MEDS: ALBUTEROL/IPRATROPIUM 3 ML NEB NEB SCH ×2 (03:00→07:05)
[2022-01-30 04:00] VITALS: BP 134/78
[2022-01-30] MEDS: BUDESONIDE 0.5MG/2 ML NEB INH SCH (07:05)
[2022-01-30] MEDS: ACETYLCYSTEINE 200 MG/ML 4ML VIAL INH SCH (07:26)
[2022-01-30] MEDS: VALSARTAN 80 MG TAB PO SCH (09:15)
[2022-01-30] MEDS: DOXYCYCLINE HYCLATE TABLET 100 MG TAB PO SCH (09:16)
[2022-01-30] MEDS: PANTOPRAZOLE SOD 40 MG TABEC PO SCH (09:16)
[2022-01-30] MEDS: GUAIFENESIN 600 MG TAB PO SCH (09:16)
[2022-01-30] MEDS: SERTRALINE HCL 50 MG TAB PO SCH (09:17)
[2022-01-30] MEDS: METHYLPREDNISOLONE SOD SUCC 40 MG/ML VIAL 1ML IV SCH (09:17)
[2022-01-30 09:20] VITALS: BP 132/74
[2022-01-30 09:34] VITALS: BP 132/74
[2022-01-30] MEDS ORDERED: medrol (10:05)
[2022-01-30] MEDS ORDERED: ONDANSETRON ODT4 MG SL (10:06)
[2022-01-30] MEDS ORDERED: MUCINEX600 MG PO (10:07)
[2022-01-30] MEDS ORDERED: DOXYCYCLINE MO100 M1 PO (10:08)
[2022-01-30] MEDS ORDERED: PROAIR HFA INH8.5 GM INH (10:10)
[2022-01-30] MEDS ORDERED: duoneb INH (10:12)
[2022-01-30] MEDS ORDERED: tessalon perles PO (10:13)
== END 2022-01-30 10:39 | disposition home or self-care (01) | DRG 193 ==
LOC: ER 10:53 → MED/SURG3 13:51
PROVIDERS: ADMIT Internal Medicine; ATTEND Internal Medicine
DX: J18.9 Pneumonia, unspecified organism (principal); J96.01 Acute respiratory failure with hypoxia; J45.901 Unspecified asthma with (acute) exacerbation; K50.90 Crohn's disease, unspecified, without complications; J84.9 Interstitial pulmonary disease, unspecified; Z20.822 Contact with and (suspected) exposure to COVID-19; Z86.16 Personal history of COVID-19; M06.9 Rheumatoid arthritis, unspecified; K29.70 Gastritis, unspecified, without bleeding; F32.A Depression, unspecified
CPT/HCPCS: 36415; 71046; 71250; 80048; 80053; 82550; 82553; 82948; 83735; 83880; 84484; 85025; 85610; 85730; 87040; 87400; 93005; 94640; 94799; 99284; J0692; J1650; J2405; J2920; J7030; J7050

== ENCOUNTER → 2022-01-26 | Outpatient (CLI) | payer BC ==
[~2022-01-26] MED LIST changes: +ALBUTEROL0.63 MG/3 NEB; +CEFUROXIME250 MG PO; +PROMETHAZI6.25 MG/5 PO; +TRELEGY ELLIPT1 EACH INH
== END ==
LOC: RAD 08:10
PROVIDERS: ATTEND Internal Medicine
DX: J21.9 Acute bronchiolitis, unspecified (principal)
CPT/HCPCS: 71046

== ENCOUNTER 2022-02-28 16:00 | Outpatient (RCR) | payer BC ==
[~2022-02-28 16:00] MED LIST changes: +ALBUTEROL0.63 MG/3 NEB; +CEFUROXIME250 MG PO; +DOXYCYCLINE MO100 M1 PO; +MUCINEX600 MG PO; +ONDANSETRON ODT4 MG SL; +PROAIR HFA INH8.5 GM INH; +PROMETHAZI6.25 MG/5 PO; +TRELEGY ELLIPT1 EACH INH; +duoneb INH; +medrol; +tessalon perles PO
[2022-03-03] MEDS ORDERED: PANTOPRAZOLE SO40 MG PO (01:32)
[2022-03-03] MEDS ORDERED: CEFDINIR300 MG PO (01:32)
[2022-03-03] MEDS ORDERED: ONDANSETRON ODT4 MG PO (01:32)
== END 2022-03-14 ==
LOC: PT 16:00
PROVIDERS: ATTEND Internal Medicine Rheumatology
DX: M54.50 Low back pain, unspecified (principal); M62.81 Muscle weakness (generalized)

== ENCOUNTER 2022-03-02 22:15 | Emergency (ER) | payer BC ==
[~2022-03-02] VITALS: Ht 149.9 cm; Wt 63.5 kg
[2022-03-02] MEDS ORDERED: ONDANSETRON HCL INJ 2MG/ML 2ML 2 MG/ML VIAL IV STA (22:47)
[2022-03-02] MEDS ORDERED: Morphine 4mg INJECTION 4 MG/ML INJ IV ONE (23:00)
[2022-03-02] MEDS ORDERED: SODIUM CHLORIDE 0.9% 1000ML 1,000 ML IV ONE (23:00)
[2022-03-02 23:15] LABS: BASOPHILS # (AUTO) 0.1 (0.0-0.1); BASOPHILS % 0.9 % (0.0-1.0); EOSINOPHILS # (AUTO) 0.2 (0.0-0.4); EOSINOPHILS % 1.7 % (0.0-6.0); LYMPHOCYTES # (AUTO) 2.4 (1.0-3.2); LYMPHOCYTES % 27.8 % (18.0-39.1); MEAN CORPUSCULAR HEMOGLOBIN 27.1 pg (28-32); MEAN CORPUSCULAR HGB CONC 30.8 g/dL (31-35); MEAN CORPUSCULAR VOLUME 88.2 fL (81-99); MONOCYTES # (AUTO) 0.6 (0.2-0.8); MONOCYTES % 6.4 % (4.4-11.3); NEUTROPHILS # (AUTO) 5.4 (2.1-6.9); PLATELET COUNT 371 x10e3/uL (140-360); RED BLOOD COUNT 4.42 x10e6/uL (3.6-5.1); RED CELL DISTRIBUTION WIDTH 12.9 % (11.7-14.4)
[2022-03-02 23:40] LABS: ALANINE AMINOTRANSFERASE 49 IU/L (0-55); ALBUMIN 3.9 g/dL (3.5-5.0); ALKALINE PHOSPHATASE 112 IU/L (40-150); ANION GAP 16.1 mmol/L (8-16); BLOOD UREA NITROGEN 6 mg/dL (7-26); BUN/CREATININE RATIO 8 (6-25); CALCIUM 9.6 mg/dL (8.4-10.2); CARBON DIOXIDE 26 mmol/L (22-29); CHLORIDE 103 mmol/L (98-107); CREATINE KINASE 35 IU/L (29-168); CREATININE, SERUM 0.71 mg/dL (0.57-1.11); GLUCOSE 192 mg/dL (74-118); POTASSIUM 3.1 mmol/L (3.5-5.1); SODIUM 142 mmol/L (136-145)
[2022-03-02 23:41] LABS: AMYLASE 67 U/L (25-125); LIPASE 33 U/L (8-78)
[2022-03-02] MEDS ORDERED: IOPAMIDOL 370 MG/ML 100 ML INFUS..BTL INJ ONE (23:58)
[2022-03-03 01:09] LABS: CLARITY,URINE CLEAR (CLEAR); COLOR,URINE YELLOW (YELLOW); LEUKOCYTE ESTERASE ,URINE TRACE (NEGATIVE); NITRITE,URINE NEGATIVE (NEGATIVE)
[2022-03-03 01:10] LABS: KETONES,URINE NEGATIVE (NEGATIVE); PROTEIN,URINE DIPSTICK NEGATIVE (NEGATIVE); URINE UROBILINOGEN 0.2 mg/dL (0.2 - 1)
[2022-03-03 01:18] LABS: BACTERIA,URINE MODERATE /HPF; EPITHELIAL CELLS,URINE MODERATE /LPF; RBC,URINE 0-5 /HPF (0-5); WBC,URINE (MAN) 21-50 /HPF (0-5)
[2022-03-03 01:19] LABS: MUCUS,URINE FEW (RARE)
[2022-03-03] MEDS ORDERED: PANTOPRAZOLE SO40 MG PO (01:32)
[2022-03-03] MEDS ORDERED: ONDANSETRON ODT4 MG PO (01:32)
[2022-03-03] MEDS ORDERED: CEFDINIR300 MG PO (01:32)
== END 2022-03-03 02:28 | disposition home or self-care (01) ==
LOC: ER 22:47
DX: R10.13 Epigastric pain (principal); K29.70 Gastritis, unspecified, without bleeding; R11.2 Nausea with vomiting, unspecified; N39.0 Urinary tract infection, site not specified; I10 Essential (primary) hypertension; F32.A Depression, unspecified; M06.9 Rheumatoid arthritis, unspecified; R94.31 Abnormal electrocardiogram [ECG] [EKG]
CPT/HCPCS: 36415; 74177; 80053; 81001; 82150; 82550; 82553; 83690; 84484; 85025; 93005; 99284; C9113; J2270; J2405; J7030; Q9967

== ENCOUNTER 2022-05-28 19:14 | Emergency (ER) | payer BC ==
[~2022-05-28] VITALS: Ht 149.9 cm; Wt 63.5 kg
[~2022-05-28 19:14] MED LIST changes: +PANTOPRAZOLE SO40 MG PO
[2022-05-28] MEDS ORDERED: ONDANSETRON HCL INJ 2MG/ML 2ML 2 MG/ML VIAL IV STA (19:24)
[2022-05-28] MEDS ORDERED: Morphine 4mg INJECTION 4 MG/ML INJ IV ONE (19:30)
[2022-05-28] MEDS ORDERED: IOPAMIDOL 370 MG/ML 100 ML INFUS..BTL INJ ONE (19:43)
[2022-05-28] MEDS ORDERED: ONDANSETRON HCL INJ 2MG/ML 2ML 2 MG/ML VIAL ONE (19:43)
[2022-05-28] MEDS ORDERED: SODIUM CHLORIDE 0.9% 1000ML 1,000 ML ONE (19:43)
[2022-05-28] MEDS ORDERED: Morphine 4mg INJECTION 4 MG/ML INJ ONE (19:43)
[2022-05-28 19:45] LABS: BASOPHILS # (AUTO) 0.1 (0.0-0.1); BASOPHILS % 1.4 % (0.0-1.0); EOSINOPHILS # (AUTO) 0.3 (0.0-0.4); EOSINOPHILS % 3.1 % (0.0-6.0); HEMATOCRIT 40.5 % (34.2-44.1); HEMOGLOBIN 12.8 g/dL (12.0-16.0); LYMPHOCYTES % 36.8 % (18.0-39.1); MEAN CORPUSCULAR HEMOGLOBIN 26.4 pg (28-32); MEAN CORPUSCULAR HGB CONC 31.6 g/dL (31-35); MEAN CORPUSCULAR VOLUME 83.7 fL (81-99); MONOCYTES # (AUTO) 0.5 (0.2-0.8); MONOCYTES % 6.7 % (4.4-11.3); NEUTROPHILS # (AUTO) 4.1 (2.1-6.9); NEUTROPHILS % 51.6 % (38.7-80.0); PLATELET COUNT 313 x10e3/uL (140-360); RED BLOOD COUNT 4.84 x10e6/uL (3.6-5.1); RED CELL DISTRIBUTION WIDTH 13.9 % (11.7-14.4)
[2022-05-28 19:51] LABS: INR 0.94; PROTHROMBIN TIME 12.8 seconds (11.9-14.5)
[2022-05-28 20:00] LABS: ALANINE AMINOTRANSFERASE 43 IU/L (0-55); ALBUMIN 3.9 g/dL (3.5-5.0); ALBUMIN/GLOBULIN RATIO 0.8 (0.8-2.0); ALKALINE PHOSPHATASE 143 IU/L (40-150); ANION GAP 14.3 mmol/L (8-16); BLOOD UREA NITROGEN 10 mg/dL (7-26); BUN/CREATININE RATIO 15 (6-25); CARBON DIOXIDE 26 mmol/L (22-29); CHLORIDE 104 mmol/L (98-107); CREATINE KINASE 53 IU/L (29-168); CREATININE, SERUM 0.68 mg/dL (0.57-1.11); GLUCOSE 137 mg/dL (74-118); POTASSIUM 3.3 mmol/L (3.5-5.1); SODIUM 141 mmol/L (136-145)
[2022-05-28] MEDS ORDERED: KETOROLAC TROMETHAMINE 30 MG/ML VIAL IV STA (20:58)
[2022-05-28] MEDS ORDERED: ORPHENADRINE CITRATE 30 MG/ML VIAL IM ONE (21:00)
[2022-05-28] MEDS: DONNATAL/LIDOCAINE/MAALOX 30 ML SUSP PO SCH ×2 (21:00→21:10)
[2022-05-28] MEDS ORDERED: LIDOCAINE VISC 2% SOLN 15 ML UDC ONE (21:09)
[2022-05-28] MEDS ORDERED: MAGNESIUM/ALUMINUM/SIMETHICONE 30 ML UDC ONE (21:09)
[2022-05-28] MEDS ORDERED: BELLADONNA ALK/PHENOBARBITAL 5 ML UDC ONE (21:09)
[2022-05-28 23:06] LABS: CREATINE KINASE MB 0.6 ng/mL (0-5.0)
[2022-05-28] MEDS ORDERED: NAPROSYN500 MG PO (23:37)
[2022-05-28] MEDS ORDERED: CYCLOBENZAPRINE5 MG PO (23:37)
== END 2022-05-28 23:45 | disposition home or self-care (01) ==
LOC: ER 19:27
DX: R07.89 Other chest pain (principal); I10 Essential (primary) hypertension; F32.A Depression, unspecified; M06.9 Rheumatoid arthritis, unspecified; Z20.822 Contact with and (suspected) exposure to COVID-19; R94.31 Abnormal electrocardiogram [ECG] [EKG]
CPT/HCPCS: 36415; 71275; 80053; 82550; 82553; 84484; 85025; 85610; 85730; 93005; 99284; C9113; J1885; J2270; J2360; J2405; J7030; Q9967; U0002

== ENCOUNTER 2022-06-02 23:50 | Emergency (ER) | payer BC ==
[~2022-06-02] VITALS: Ht 149.9 cm; Wt 63.5 kg
[~2022-06-02 23:50] MED LIST changes: +CYCLOBENZAPRINE5 MG PO; +NAPROSYN500 MG PO
[2022-06-03 00:17] LABS: BASOPHILS # (AUTO) 0.1 (0.0-0.1); BASOPHILS % 1.1 % (0.0-1.0); EOSINOPHILS # (AUTO) 0.3 (0.0-0.4); EOSINOPHILS % 3.2 % (0.0-6.0); HEMATOCRIT 39.7 % (34.2-44.1); HEMOGLOBIN 12.7 g/dL (12.0-16.0); LYMPHOCYTES # (AUTO) 3.4 (1.0-3.2); LYMPHOCYTES % 38.4 % (18.0-39.1); MEAN CORPUSCULAR HEMOGLOBIN 27.2 pg (28-32); MONOCYTES # (AUTO) 0.6 (0.2-0.8); MONOCYTES % 7.3 % (4.4-11.3); NEUTROPHILS # (AUTO) 4.3 (2.1-6.9); NEUTROPHILS % 49.7 % (38.7-80.0); PLATELET COUNT 309 x10e3/uL (140-360); RED BLOOD COUNT 4.67 x10e6/uL (3.6-5.1); RED CELL DISTRIBUTION WIDTH 13.9 % (11.7-14.4)
[2022-06-03] MEDS ORDERED: ONDANSETRON HCL INJ 2MG/ML 2ML 2 MG/ML VIAL IV STA (00:19)
[2022-06-03] MEDS ORDERED: Morphine 4mg INJECTION 4 MG/ML INJ ONE (00:22)
[2022-06-03] MEDS ORDERED: ONDANSETRON HCL INJ 2MG/ML 2ML 2 MG/ML VIAL ONE (00:22)
[2022-06-03] MEDS ORDERED: Morphine 4mg INJECTION 4 MG/ML INJ IV ONE (00:30)
[2022-06-03 00:33] LABS: ALANINE AMINOTRANSFERASE 54 IU/L (0-55); ALBUMIN 4.1 g/dL (3.5-5.0); ALBUMIN/GLOBULIN RATIO 0.9 (0.8-2.0); ALKALINE PHOSPHATASE 144 IU/L (40-150); ANION GAP 14.2 mmol/L (8-16); BLOOD UREA NITROGEN 12 mg/dL (7-26); BUN/CREATININE RATIO 17 (6-25); CALCIUM 9.7 mg/dL (8.4-10.2); CARBON DIOXIDE 25 mmol/L (22-29); CHLORIDE 105 mmol/L (98-107); CREATINE KINASE 58 IU/L (29-168); CREATININE, SERUM 0.72 mg/dL (0.57-1.11); GLUCOSE 120 mg/dL (74-118); POTASSIUM 3.2 mmol/L (3.5-5.1); SODIUM 141 mmol/L (136-145)
[2022-06-03 00:40] LABS: AMPHETAMINES SCREEN,URINE NEGATIVE (NEGATIVE); BENZODIAZEPINES SCREEN,URINE NEGATIVE (NEGATIVE); PHENCYCLIDINE SCREEN,URINE NEGATIVE (NEGATIVE)
[2022-06-03] MEDS ORDERED: PREDNISONE20 MG PO (01:50)
[2022-06-03 02:03] VITALS: BP 158/72
== END 2022-06-03 02:01 | disposition home or self-care (01) ==
LOC: ER 06-03 00:01
DX: R07.9 Chest pain, unspecified (principal); I10 Essential (primary) hypertension; M06.9 Rheumatoid arthritis, unspecified; F32.A Depression, unspecified; Z20.822 Contact with and (suspected) exposure to COVID-19; Z88.1 Allergy status to other antibiotic agents; Z79.899 Other long term (current) drug therapy
CPT/HCPCS: 36415; 71045; 80053; 80307; 82550; 82553; 83880; 84484; 85025; 85379; 93005; 99284; J2270; J2405; U0002

== ENCOUNTER → 2022-08-27 | Outpatient (CLI) | payer BC | LOC: RAD 08:52 | PROVIDERS: ATTEND Student in an Organized Health Care Education/Training Program | DX: R06.02 Shortness of breath (principal) | CPT/HCPCS: 93306 ==

== ENCOUNTER → 2022-09-19 | Outpatient (CLI) | payer BC | LOC: MAMMO 16:22 | PROVIDERS: ATTEND Internal Medicine | DX: Z12.31 Encounter for screening mammogram for malignant neoplasm of breast (principal) | CPT/HCPCS: 77067 ==

== ENCOUNTER → 2022-09-28 | Outpatient (CLI) | payer BC | LOC: DX 12:51 | PROVIDERS: ATTEND Internal Medicine | DX: M85.88 Other specified disorders of bone density and structure, other site (principal); E01.0 Iodine-deficiency related diffuse (endemic) goiter | CPT/HCPCS: 76536; 77080 ==

== ENCOUNTER → 2023-02-08 | Outpatient (REF) | payer BC ==
[~2023-02-08] MED LIST changes: +B6; +CETIRIZINE HCL5 MG PO; +FLONASE ALLERG9.9 ML INH; +NIACIN500 M2 PO
== END ==
LOC: MRI 12:31
PROVIDERS: ATTEND Podiatrist Foot & Ankle Surgery
DX: M79.671 Pain in right foot (principal); M67.873 Other specified disorders of tendon, right ankle and foot; M25.371 Other instability, right ankle

== ENCOUNTER 2023-08-28 09:46 | Emergency (ER) | payer BC ==
[~2023-08-28] VITALS: Ht 149.9 cm; Wt 70.3 kg
[~2023-08-28 09:46] MED LIST changes: -B6; +B6 PO; +GLYBURIDE5 MG PO; -HUMIRA PEN40 MG/0.8; +HUMIRA PEN40 MG/0.8 SC; +ISONIAZID100 MG PO; +NAPROXEN250 MG PO; +NEURONTIN100 MG PO
[2023-08-28] MEDS ORDERED: SODIUM CHLORIDE FLUSH 10 ML SYR IV PRN (10:15)
[2023-08-28] MEDS: KETOROLAC TROMETHAMINE 30 MG/ML VIAL IV STA (10:19)
[2023-08-28 10:33] LABS: BASOPHILS # (AUTO) 0.1 (0.0-0.1); BASOPHILS % 1.1 % (0.0-1.0); EOSINOPHILS # (AUTO) 0.2 (0.0-0.4); EOSINOPHILS % 2.1 % (0.0-6.0); HEMATOCRIT 36.1 % (34.2-44.1); HEMOGLOBIN 11.5 g/dL (12.0-16.0); LYMPHOCYTES # (AUTO) 2.8 (1.0-3.2); LYMPHOCYTES % 34.7 % (18.0-39.1); MEAN CORPUSCULAR HEMOGLOBIN 24.9 pg (28-32); MEAN CORPUSCULAR HGB CONC 31.9 g/dL (31-35); MEAN CORPUSCULAR VOLUME 78.3 fL (81-99); MONOCYTES # (AUTO) 0.4 (0.2-0.8); NEUTROPHILS # (AUTO) 4.6 (2.1-6.9); NEUTROPHILS % 56.9 % (38.7-80.0); PLATELET COUNT 295 x10e3/uL (140-360); RED BLOOD COUNT 4.61 x10e6/uL (3.6-5.1); RED CELL DISTRIBUTION WIDTH 17.5 % (11.7-14.4); WHITE BLOOD COUNT 8.06 x10e3/uL (4.8-10.8)
[2023-08-28 10:51] LABS: ALBUMIN 3.6 g/dL (3.5-5.0); ALBUMIN/GLOBULIN RATIO 0.8 (0.8-2.0); BILIRUBIN,TOTAL 0.4 mg/dL (0.2-1.2); CALCIUM 9.3 mg/dL (8.4-10.2); CREATININE, SERUM 0.7 mg/dL (0.57-1.11); TOTAL PROTEIN 8.4 g/dL (6.5-8.1)
[2023-08-28 10:58] LABS: TROPONIN I 0.002 ng/mL (0-0.300)
[2023-08-28 12:59] VITALS: O2SAT 100
== END 2023-08-28 13:03 | disposition home or self-care (01) ==
LOC: ER 10:02
DX: R07.89 Other chest pain (principal); I10 Essential (primary) hypertension; E11.9 Type 2 diabetes mellitus without complications; D64.9 Anemia, unspecified; K21.9 Gastro-esophageal reflux disease without esophagitis; M06.9 Rheumatoid arthritis, unspecified; F32.A Depression, unspecified; R94.31 Abnormal electrocardiogram [ECG] [EKG]; Z87.09 Personal history of other diseases of the respiratory system
CPT/HCPCS: 36415; 71046; 80053; 83880; 84484; 85025; 93005; 99283; J1885